=== PATIENT | male | born 1980 | race Caucasian/White ===

== ENCOUNTER 2017-10-07 17:21 | Inpatient (IN) | payer OTHER ==
[~2017-10-07] VITALS: Ht 180.3 cm; Wt 65.1 kg
[2017-10-07] MEDS ORDERED: ACETAMINOPHEN 325 MG TAB PO STA (17:40)
[2017-10-07] MEDS ORDERED: IBUPROFEN 200 MG TAB PO STA (17:40)
[2017-10-07] MEDS ORDERED: SODIUM CHLORIDE 0.9% 1000ML 1,000 ML IV STA (17:40)
[2017-10-07] MEDS ORDERED: OPTIRAY 320 IV PRN (18:00)
--- NOTE | 2017-10-07 18:16 | DIAGNOSTIC IMAGING REPORT ---
CHEST ONE VIEW PORTABLE CLINICAL HISTORY: Sepsis COMPARISON STUDY: No previous studies for comparison. FINDINGS: There is evidence for old distal right clavicular injury. Several old right rib fractures are noted. There is no pneumothorax or pleural effusion. No consolidation. Cardiomediastinal silhouette is unremarkable. IMPRESSION: No acute cardiopulmonary findings. Electronically signed by: Leroy Gracia M.D. 10/07/2017 6:15 PM Dictated Date/Time: 10/07/2017 6:13 PM
[2017-10-07] MEDS ORDERED: CLON0.5T3 PO (18:36)
[2017-10-07] MEDS ORDERED: DIVA500T5 PO (18:38)
[2017-10-07 18:42] LABS: HEMATOCRIT 33.3 % (42-52); HEMOGLOBIN 11.7 g/dL (14.0-18.0); MEAN CELL VOLUME 86.9 fL (80-100); MEAN CORPUSCULAR HEMOGLOBIN 30.5 pg (25-34); MEAN CORPUSCULAR HGB CONC 35.1 g/dl (32-36); MEAN PLATELET VOLUME 9.6 fL (7.4-10.4); PLATELET COUNT 202 K/uL (130-400); RED CELL DISTRIBUTION WIDTH CV 12.7 % (11.5-14.5); RED CELL DISTRIBUTION WIDTH SD 41.1 fL (36.4-46.3); WHITE BLOOD COUNT 6.39 K/uL (4.8-10.8)
[2017-10-07] MEDS ORDERED: INSHRIE SQ ×2 (18:42→18:48)
[2017-10-07] MEDS ORDERED: INSDGI SQ ×2 (18:44→18:56)
[2017-10-07 18:52] LABS: PTT PATIENT 32.3 SECONDS (21.0-31.0)
[2017-10-07] MEDS ORDERED: LISI-789 PO (18:58)
[2017-10-07] MEDS ORDERED: PRVC/40 PO (19:03)
[2017-10-07] MEDS ORDERED: RISP3TAB12 PO (19:05)
[2017-10-07] MEDS ORDERED: ERYOPO OPB (19:08)
[2017-10-07] MEDS ORDERED: ACET-1311 PO (19:11)
[2017-10-07 19:12] LABS: BASO % 0.2 %; BASO ABS # 0.01 K/uL (0-0.2); IG# 0.01 K/uL (0.00-0.02); LYMPH ABS # 0.83 K/uL (1.2-3.4); MONO % 6.6 %; MONO ABS # 0.42 K/uL (0.11-0.59); NEUT ABS # 5.12 K/uL (1.4-6.5)
[2017-10-07] MEDS ORDERED: MOMLX PO (19:15)
[2017-10-07] MEDS ORDERED: EMOLLOT TD (19:16)
[2017-10-07 19:18] LABS: CREATININE 0.85 mg/dl (0.60-1.40); POTASSIUM 3.8 mmol/L (3.5-5.1)
[2017-10-07 19:21] LABS: TOTAL PROTEIN 7.2 gm/dl (6.4-8.2)
[2017-10-07 20:05] LABS: INFLUENZA A PCR Neg for Influ A (NEG); INFLUENZA B PCR Neg for Influ B (NEG)
--- NOTE | 2017-10-07 20:16 | DIAGNOSTIC IMAGING REPORT ---
HEAD COMBO CLINICAL HISTORY: Fever. Headache. COMPARISON STUDY: No previous studies for comparison. TECHNIQUE: Axial images of the head were obtained before and after intravenous administration of 119 cc Optiray 320 IV. FINDINGS: No acute intracranial hemorrhage, midline shift or mass effect is present. Ventricular system is normal. Basilar cisterns are patent. No extra axial collections are present. Boyd-white differentiation is maintained. There are no findings to suggest acute dural sinus thrombosis or acute territorial infarct. There is no intracranial mass or pathologic enhancement. There are no significant calvarial abnormalities. There is minimal mucosal thickening of the sinuses. IMPRESSION: 1. No acute intracranial findings. 2. No intracranial mass or pathologic enhancement. Electronically signed by: Leroy Gracia M.D. 10/07/2017 8:15 PM Dictated Date/Time: 10/07/2017 8:11 PM
[2017-10-07] MEDS ORDERED: PIPERACILLIN/TAZOBACTAM 4.5 GM/100ML D5W IV STA (20:25)
[2017-10-07] MEDS ORDERED: VANCOMYCIN 1GM ED/ASU OMNICELL IV STA (20:25)
--- NOTE | 2017-10-07 20:46 | EMERGENCY ROOM VISIT NOTE ---
History Report prepared by Andres: Mike Alfaro Under the Supervision of: Dr. Andres Loya M.D. First contact with patient: 17:29 Chief Complaint: FEVER Stated Complaint: 105 FEVER History of Present Illness The patient is a 37 year old male who presents to the Emergency Room with complaints of constant fever beginning a few days ago. He is incarcerated. The patient also complains of sore throat, nausea, diarrhea, and headaches. He notes that he has been sleeping a lot recently. His additional symptoms have been present for a few days. The patient's fever peaked at 105 degrees. He has an ulcer of the left great toe which has been present for about a year (on Cipro ). He states that he "killed the ulcer" by putting salt on it a few days ago. The patient states that he is unable to feel his toe which is normal. He notes that he put salt in his eyes recently, which he states was to "help me concentrate". He denies coughing, vomiting, chest pain, or abdominal pain. The headache is frontal. He has had it for 3 days. Source of History: patient Onset: a few days ago Symptom Intensity: 105 degrees Quality: other (fevers) Timing: constant Associated Symptoms: + headache, + sorethroat, + nausea, + diarrhea, No cough, No chest pain, No vomiting, No abdominal pain Review of Systems See HPI for pertinent positives & negatives. A total of 10 systems reviewed and were otherwise negative. Past Medical & Surgical Medical Problems: (1) Diabetes (2) Schizoaffective disorder Family History No pertinent family history stated. Social History Smoking Status: Never Smoker Housing Status: other (incarcerated) Occupation Status: other (incarcerated) Current/Historical Medications Scheduled Clonazepam (Klonopin), 0.5 MG PO BID Divalproex Sodium (Depakote Delay Rel), 500 MG PO BID Erythromycin Opth (Erythromycin Opth), 1 APPLN OPB TID Insulin Glargine (Lantus), 10 UNITS SQ QAM Insulin Glargine (Lantus), 13 UNITS SQ QPM Insulin Human Regular (Humulin R), 3 UNITS SQ QAM Insulin Human Regular (Humulin R), SQ ACHS Lisinopril (Zestril), 2.5 MG PO QAM Pravastatin Sod (Pravastatin Sodium), 40 MG PO HS Risperidone (Risperdal), 3 MG PO BID Scheduled PRN Acetaminophen (Tylenol), 650 MG PO BID PRN for Pain or Fever Emollient (Thera-Derm), 1 APPLN TD DAILY PRN for UNDECIDED Magnesium Hydroxide (Milk of Magnesia), 20 PO DAILY PRN for Constipation Allergies Coded Allergies: No Known Allergies (Unverified , 10/07/17) Physical Exam Vital Signs Date Time Temp Pulse Resp B/P (MAP) Pulse Ox O2 Delivery O2 Flow Rate FiO2 10/07/17 19:58 36.9 10/07/17 19:56 36.9 95 22 106/64 99 Room Air 10/07/17 18:22 95 Room Air 10/07/17 17:26 39.1 119 18 115/68 98 Room Air Physical Exam Constitutional: Vital signs reviewed. Eyes: Pupils are equal round reactive to light. Left eye is injected. HENT: Excoriations to the face over the maxillary sinuses. Whitish discharge on the tongue and throat. Mucous membranes are dry. Neck supple without meningeal signs. Respiratory: Clear to auscultation bilaterally. Breath sounds are equal bilaterally. Cardiovascular: Regular rate and rhythm. No rubs or gallops. GI: Soft, nondistended and nontender. Bowel sounds are present. 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 Left big toe with a large ulcer to the plantar aspect with surrounding cellulitis extending to the forefoot. Integumentary: No cyanosis. Neurological: The patient is awake and alert. No focal deficits. Psychiatric: Flight of ideas. Medical Decision & Procedures ER Provider Diagnostic Interpretation: Radiology results as stated below per my review and the radiologist's interpretation: CHEST ONE VIEW PORTABLE FINDINGS: There is evidence for old distal right clavicular injury. Several old right rib fractures are noted. There is no pneumothorax or pleural effusion. No consolidation. Cardiomediastinal silhouette is unremarkable. IMPRESSION: No acute cardiopulmonary findings. Electronically signed by: Leroy Gracia M.D. 10/07/2017 6:15 PM HEAD COMBO FINDINGS: No acute intracranial hemorrhage, midline shift or mass effect is present. Ventricular system is normal. Basilar cisterns are patent. No extra axial collections are present. Boyd-white differentiation is maintained. There are no findings to suggest acute dural sinus thrombosis or acute territorial infarct. There is no intracranial mass or pathologic enhancement. There are no significant calvarial abnormalities. There is minimal mucosal thickening of the sinuses. IMPRESSION: 1. No acute intracranial findings. 2. No intracranial mass or pathologic enhancement. Electronically signed by: Leroy Gracia M.D. 10/07/2017 8:15 PM Laboratory Results 10/07/17 18:03 Red Blood Count 3.83, Mean Corpuscular Volume 86.9, Mean Corpuscular Hemoglobin 30.5, Mean Corpuscular Hemoglobin Concent 35.1, Mean Platelet Volume 9.6, Neutrophils (%) (Auto) 80.0, Lymphocytes (%) (Auto) 13.0, Monocytes (%) (Auto) 6.6, Eosinophils (%) (Auto) 0.0, Basophils (%) (Auto) 0.2, Neutrophils # (Auto) 5.12, Lymphocytes # (Auto) 0.83, Monocytes # (Auto) 0.42, Eosinophils # (Auto) 0.00, Basophils # (Auto) 0.01 10/07/17 18:03 Test 10/07/17 18:03 10/07/17 18:26 10/07/17 19:15 White Blood Count 6.39 K/uL (4.8-10.8) Red Blood Count 3.83 M/uL (4.7-6.1) Hemoglobin 11.7 g/dL (14.0-18.0) Hematocrit 33.3 % (42-52) Mean Corpuscular Volume 86.9 fL (80-100) Mean Corpuscular Hemoglobin 30.5 pg (25-34) Mean Corpuscular Hemoglobin Concent 35.1 g/dl (32-36) Platelet Count 202 K/uL (130-400) Mean Platelet Volume 9.6 fL (7.4-10.4) Neutrophils (%) (Auto) 80.0 % Lymphocytes (%) (Auto) 13.0 % Monocytes (%) (Auto) 6.6 % Eosinophils (%) (Auto) 0.0 % Basophils (%) (Auto) 0.2 % Neutrophils # (Auto) 5.12 K/uL (1.4-6.5) Lymphocytes # (Auto) 0.83 K/uL (1.2-3.4) Monocytes # (Auto) 0.42 K/uL (0.11-0.59) Eosinophils # (Auto) 0.00 K/uL (0-0.5) Basophils # (Auto) 0.01 K/uL (0-0.2) RDW Standard Deviation 41.1 fL (36.4-46.3) RDW Coefficient of Variation 12.7 % (11.5-14.5) Immature Granulocyte % (Auto) 0.2 % Immature Granulocyte # (Auto) 0.01 K/uL (0.00-0.02) Dohle Bodies 1+ Prothrombin Time 10.7 SECONDS (9.0-12.0) Prothromb Time International Ratio 1.0 (0.9-1.1) Activated Partial Thromboplast Time 32.3 SECONDS (21.0-31.0) Partial Thromboplastin Ratio 1.2 Anion Gap 8.0 mmol/L (3-11) Est Creatinine Clear Calc Drug Dose 117.2 ml/min Estimated GFR () 128.1 Estimated GFR (Non- 110.5 BUN/Creatinine Ratio 19.4 (10-20) Calcium Level 8.0 mg/dl (8.5-10.1) Total Bilirubin 0.5 mg/dl (0.2-1) Aspartate Amino Transf (AST/SGOT) 38 U/L (15-37) Alanine Aminotransferase (ALT/SGPT) 51 U/L (12-78) Alkaline Phosphatase 128 U/L (45-117) Total Protein 7.2 gm/dl (6.4-8.2) Albumin 3.0 gm/dl (3.4-5.0) Globulin 4.2 gm/dl (2.5-4.0) Albumin/Globulin Ratio 0.7 (0.9-2) Influenza Type A (RT-PCR) Neg for Influ A (NEG) Influenza Type B (RT-PCR) Neg for Influ B (NEG) Bedside Lactic Acid Venous 1.87 mmol/L (0.90-1.70) Laboratory results as reviewed by me. Medications Administered Medications (Trade) Dose Ordered Sig/Kunal Route Start Time Stop Time Status Last Admin Dose Admin Ibuprofen (Advil Tab) 400 mg NOW STAT PO 10/07/17 17:40 10/07/17 17:44 DC 10/07/17 17:40 400 MG Acetaminophen (Tylenol Tab) 650 mg NOW STAT PO 10/07/17 17:40 10/07/17 17:44 DC 4/2/18 17:40 650 MG Sodium Chloride 1,000 ml @ 999 mls/hr Q1H1M STAT IV 10/07/17 17:40 10/07/17 18:40 DC 10/07/17 17:40 999 MLS/HR Piperacillin Sod/ Tazobactam Sod (Zosyn Iv) 4.5 gm NOW STAT IV 10/07/17 20:25 10/07/17 20:26 DC 10/07/17 20:38 4.5 GM ED Course 1729: The patient was evaluated in room B6. A complete history and physical exam was performed. 1739: Ordered Tylenol Tab 650 mg PO, Advil Tab 400 mg PO. 1934: I spoke with the patient. His headache has improved. 2007: Upon reevaluation, the patient is resting comfortably. I discussed tonight 's findings with him. He verbalized agreement of the treatment plan. The patient will be evaluated for further management. Medical Decision This is a 37-year-old male presents with fever, headache and foot infection. Differential diagnosis includes sepsis, osteomyelitis, gangrene, cellulitis, influenza, intracranial hemorrhage, brain abscess. I did perform a limited focused review of portions of the patient's old chart on the electronic medical record. The patient has had no prior visits to this hospital. I did evaluate the patient as noted above. The patient is presenting with fever starting today. He states he has had a headache for about 3 days. He is neurologically intact without any focal deficits. He has no meningeal signs and is able to move his neck around without any difficulty. He is febrile here and I did treat him with Tylenol and Motrin. He does have a significant infection to his left foot which he has been putting salt on. IV access was established. I did order and personally review the patient's 12-lead EKG and chest x-ray as described above. I did order and review the patient's blood work as noted in the electronic medical record. His white blood cell count is not elevated. His lactic acid is slightly elevated. He has slight hyponatremia. He does have hyperglycemia as well. He is a diabetic. The patient was complaining of a frontal headache for the past 3 days. I did order a CT of the head with and without contrast. I did review the images myself as well as the radiology report as described above. There is no evidence of brain abscess or intracranial hemorrhage. On reassessment the patient states that his headache is much better. He rates it a 4 out of 10 in severity. He has no meningeal signs. I did treat the patient empirically with vancomycin and Zosyn for his left foot infection. An x-ray was obtained which shows no acute fracture. No periosteal irregularity was noted per my interpretation. I did discuss the test results with the patient. I did discuss case with the hospitalist and counter caser. Medication Reconcilliation Current Medication List: was personally reviewed by me Blood Pressure Screening Patient's blood pressure: Normal blood pressure Blood pressure disposition: Did not require urgent referral Consults Time Called: 1957 Consulting Physician: Dr. Maxwell - [facility] [place] Hospitalist Returned Call: 2009 Dr. Maxwell was made aware of the patient's case. The patient will be evaluated for further management. Impression Primary Impression: Left foot infection Additional Impressions: Hyperglycemia Hyponatremia Headache Scribe Attestation The scribe's documentation has been prepared under my direct and personally reviewed by me in its entirety. I confirm that the note above accurately reflects all work, treatment, procedures, and medical decision making performed by me. Departure Information Dispostion Being Evaluated By Hospitalist Referrals No Doctor, Assigned (PCP) Patient Instructions My [facility] Problem Qualifiers Additional Impressions: Headache Headache type: unspecified Headache chronicity pattern: acute headache Intractability: not intractable Qualified Codes: R51 - Headache
--- NOTE | 2017-10-07 20:56 | DIAGNOSTIC IMAGING REPORT ---
L FOOT MIN 3 VIEWS ROUTINE CLINICAL HISTORY: Evaluate for fracture or osteomyelitis. COMPARISON: None FINDINGS: Tarsometatarsal joints are intact. There is no fracture. There is no radiographic evidence of osteomyelitis within the left foot. There is possible soft tissue swelling of the left first toe. IMPRESSION: No fracture or radiographic evidence of osteomyelitis within the left foot. Electronically signed by: Leroy Gracia M.D. 10/07/2017 8:55 PM Dictated Date/Time: 10/07/2017 8:53 PM
[2017-10-07] MEDS ORDERED: PIPERACILL/TAZOBAC CONSULT ACTIVE PRN (21:30)
[2017-10-07] MEDS ORDERED: GLUCOSE 40% GEL 15 GM TUBE PO PRN (21:30)
[2017-10-07] MEDS ORDERED: MAGNESIUM HYDROXIDE SUSP 30 ML UDC PO PRN (21:30)
[2017-10-07] MEDS ORDERED: ALUMINUM/MAGNESIUM/SIMETH (MAALOX MAX) 30 ML UDC PO PRN (21:30)
[2017-10-07] MEDS ORDERED: GLUCOSE 10 TABS/TUBE PO PRN (21:30)
[2017-10-07] MEDS ORDERED: ONDANSETRON 8MG OD TAB PO PRN (21:30)
[2017-10-07] MEDS ORDERED: POLYETHYLENE (MIRALAX) 17 GM PACK PO PRN (21:30)
[2017-10-07] MEDS ORDERED: GLUCAGON FOR INJ 1 MG VIAL SQ PRN (21:30)
[2017-10-07] MEDS ORDERED: DEXTROSE 50% 50 ML SYR IV PRN (21:30)
[2017-10-07] MEDS ORDERED: VANCOMYCIN CONSULT ACTIVE PRN (21:30)
--- NOTE | 2017-10-07 21:30 | History and Physical ---
History & Physical Date & Time of Service: Oct 07, 2017 at 21:30 Chief Complaint: 105 Fever Primary Care Physician: Alden PA History of Present Illness Source: patient, hospital records The patient is a 37-year-old male inmate who presents to the emergency department with report of a blister on his left great toe which had been present for about a year, originally treated with Cipro, and then he put salt on it a few days ago when it recurred, and now presents with fevers and chills. He also notes that he put salt in his eyes, to help him concentrate. He does have a mild frontal headache, over the past 3 days. Past Medical/Surgical History Medical Problems: (1) Diabetes (2) Schizoaffective disorder Family History Noncontributory Social History Smoking Status: Never Smoker Smokeless Tobacco Use: No Alcohol Use: none Drug Use: none Housing status: other (Shelter) Occupational Status: other (incarcerated) Immunizations History of Influenza Vaccine: Unknown History of Tetanus Vaccine?: Unknown History of Pneumococcal: Unknown History of Hepatitis B Vaccine: Unknown Allergies Coded Allergies: No Known Allergies (Unverified , 10/07/17) Home Medications Scheduled Clonazepam (Klonopin), 0.5 MG PO BID Divalproex Sodium (Depakote Delay Rel), 500 MG PO BID Erythromycin Opth (Erythromycin Opth), 1 APPLN OPB TID Insulin Glargine (Lantus), 10 UNITS SQ QAM Insulin Glargine (Lantus), 13 UNITS SQ QPM Insulin Human Regular (Humulin R), 3 UNITS SQ QAM Insulin Human Regular (Humulin R), SQ ACHS Lisinopril (Zestril), 2.5 MG PO QAM Pravastatin Sod (Pravastatin Sodium), 40 MG PO HS Risperidone (Risperdal), 3 MG PO BID Scheduled PRN Acetaminophen (Tylenol), 650 MG PO BID PRN for Pain or Fever Emollient (Thera-Derm), 1 APPLN TD DAILY PRN for UNDECIDED Magnesium Hydroxide (Milk of Magnesia), 20 PO DAILY PRN for Constipation Review of Systems The patient denies chest pain, palpitations, shortness of breath, dyspnea on exertion, cough, lower extremity swelling, sore throat, fatigue, nausea, vomiting, diarrhea , constipation, abdominal pain , pelvic pain, blood in urine or stool, dysuria, urinary frequency or urgency, lightheadedness , dizziness, headache, memory loss, loss of consciousness, abnormal bruising or bleeding, generalized weakness, generalized arthralgias or myalgias, back or neck pain, or night sweats. The review of systems is otherwise negative other than for that already noted above, and at least 10 systems have been reviewed. Physical Exam Vital Signs Date Time Temp Pulse Resp B/P (MAP) Pulse Ox O2 Delivery O2 Flow Rate FiO2 10/07/17 19:58 36.9 10/07/17 19:56 36.9 95 22 106/64 99 Room Air 10/07/17 18:22 95 Room Air 10/07/17 17:26 39.1 119 18 115/68 98 Room Air The patient is awake, alert and oriented 3, appears disheveled, normocephalic and atraumatic, lying in bed and in no acute distress. HEENT--PERRL, EOMI, mucous membranes and oropharynx dry. Neck--supple. No JVD. No bruits. Thyroid normal, trachea midline, no adenopathy. Heart--normal S1 and S2. No murmurs, rubs or gallops. Lungs--clear bilaterally, no respiratory distress, no accessory muscle use. Abdomen--normal bowel sounds and soft. Nontender. Nondistended, no hernias or masses, no organomegaly. Extremities-- No edema. There are good distal pulses b/l. Dermatologic--left great toe with erythema and warmth, with area of eschar approximately 1/2 cm in diameter at the base of the left great toe. Neurologic--cranial nerves II through XII grossly intact. Rheumatologic--normal range of motion. Psychiatric--normal affect. Diagnostics Laboratory Results Results Past 24 Hours Test 10/07/17 18:03 10/07/17 18:26 10/07/17 19:15 10/07/17 21:16 Range/Units White Blood Count 6.39 4.8-10.8 K/uL Red Blood Count 3.83 4.7-6.1 M/uL Hemoglobin 11.7 14.0-18.0 g/dL Hematocrit 33.3 42-52 % Mean Corpuscular Volume 86.9 80-100 fL Mean Corpuscular Hemoglobin 30.5 25-34 pg Mean Corpuscular Hemoglobin Concent 35.1 32-36 g/dl Platelet Count 202 130-400 K/uL Mean Platelet Volume 9.6 7.4-10.4 fL Neutrophils (%) (Auto) 80.0 % Lymphocytes (%) (Auto) 13.0 % Monocytes (%) (Auto) 6.6 % Eosinophils (%) (Auto) 0.0 % Basophils (%) (Auto) 0.2 % Neutrophils # (Auto) 5.12 1.4-6.5 K/uL Lymphocytes # (Auto) 0.83 1.2-3.4 K/uL Monocytes # (Auto) 0.42 0.11-0.59 K/uL Eosinophils # (Auto) 0.00 0-0.5 K/uL Basophils # (Auto) 0.01 0-0.2 K/uL RDW Standard Deviation 41.1 36.4-46.3 fL RDW Coefficient of Variation 12.7 11.5-14.5 % Immature Granulocyte % (Auto) 0.2 % Immature Granulocyte # (Auto) 0.01 0.00-0.02 K/uL Dohle Bodies 1+ Prothrombin Time 10.7 9.0-12.0 SECONDS Prothromb Time International Ratio 1.0 0.9-1.1 Activated Partial Thromboplast Time 32.3 21.0-31.0 SECONDS Partial Thromboplastin Ratio 1.2 Sodium Level 130 136-145 mmol/L Potassium Level 3.8 3.5-5.1 mmol/L Chloride Level 92 98-107 mmol/L Carbon Dioxide Level 30 21-32 mmol/L Anion Gap 8.0 3-11 mmol/L Blood Urea Nitrogen 16 7-18 mg/dl Creatinine 0.85 0.60-1.40 mg/dl Est Creatinine Clear Calc Drug Dose 117.2 ml/min Estimated GFR () 128.1 Estimated GFR (Non- 110.5 BUN/Creatinine Ratio 19.4 10-20 Random Glucose 225 70-99 mg/dl Calcium Level 8.0 8.5-10.1 mg/dl Total Bilirubin 0.5 0.2-1 mg/dl Aspartate Amino Transf (AST/SGOT) 38 15-37 U/L Alanine Aminotransferase (ALT/SGPT) 51 12-78 U/L Alkaline Phosphatase 128 45-117 U/L Total Protein 7.2 6.4-8.2 gm/dl Albumin 3.0 3.4-5.0 gm/dl Globulin 4.2 2.5-4.0 gm/dl Albumin/Globulin Ratio 0.7 0.9-2 Influenza Type A (RT-PCR) Neg for Influ A NEG Influenza Type B (RT-PCR) Neg for Influ B NEG Bedside Lactic Acid Venous 1.87 0.90-1.70 mmol/L Microbiology Results 10/07/17 Blood Culture, Received Pending 10/07/17 Blood Culture, Received Pending 10/07/17 Fungal Smear, Received Pending 10/07/17 Fungal Culture, Received Pending Diagnostic Radiology Patient Name: GEOFF VILLATORO [id number] Unit Number: [id number] Dictated: 10/07/172010 Transcribed: 10/07/172010 JA Printed Date/Time: [~ rep prt dt]/[~ rep prt tm] [~ rep ct labl] - [~ rep ct ivnm] [facility] Radiology Department [place] [id number] Dictated: 10/07/172010 Transcribed: 10/07/172010 JA Printed Date/Time: [~ rep prt dt]/[~ rep prt tm] [~ rep ct labl] - [~ rep ct ivnm] HEAD COMBO CLINICAL HISTORY: Fever. Headache. COMPARISON STUDY: No previous studies for comparison. TECHNIQUE: Axial images of the head were obtained before and after intravenous administration of 119 cc Optiray 320 IV. FINDINGS: No acute intracranial hemorrhage, midline shift or mass effect is present. Ventricular system is normal. Basilar cisterns are patent. No extra axial collections are present. Boyd-white differentiation is maintained. There are no findings to suggest acute dural sinus thrombosis or acute territorial infarct. There is no intracranial mass or pathologic enhancement. There are no significant calvarial abnormalities. There is minimal mucosal thickening of the sinuses. IMPRESSION: 1. No acute intracranial findings. 2. No intracranial mass or pathologic enhancement. Electronically signed by: Leroy Gracia M.D. 10/07/2017 8:15 PM Dictated Date/Time: 10/07/2017 8:11 PM The status of this report is Signed. Draft = Not yet reviewed or approved by Radiologist. Signed = Reviewed and approved by Radiologist. <AttendingPhy></AttendingPhy> <FamilyPhy>Alden PA</FamilyPhy> <PrimaryPhy>Alden PA</PrimaryPhy> <UnitNumber>[id number]</UnitNumber> <VisitNumber> [id number]</VisitNumber> <PatientName>GEOFF VILLATORO [id number]</PatientName> < DateOfBirth>1980</DateOfBirth> <Location>[facility]</Location> <ServiceDate>08/25</ServiceDate> <MNE>ESINDI</MNE> <OrderingPhy>Andres Loya MD</ OrderingPhy> <OrderingPhyMNE>f rep ord dr nava</OrderingPhyMNE> <DictatingPhyMNE> f rep dict dr nava</DictatingPhyMNE> <CCListMNE>f rep ct mne</CCListMNE> < AdmittingPhyMNE>f pt admit dr nava</AdmittingPhyMNE> <AttendingPhyMNE>f pt attend dr nava</AttendingPhyMNE> <ConsultingPhyMNE>f pt consult dr nava</ConsultingPhyMNE> <FamilyPhyMNE>f pt fam dr nava</FamilyPhyMNE> <OtherPhyMNE>f pt other dr nava</OtherPhyMNE> < PrimaryPhyMNE>f pt prim care dr nava</PrimaryPhyMNE> <ReferringPhyMNE>f pt referring dr nava</ReferringPhyMNE> Patient Name: GEOFF VILLATORO [id number] Unit Number: [id number] Dictated: 10/07/171812 Transcribed: 10/07/171812 JA Printed Date/Time: [~ rep prt dt]/[~ rep prt tm] [~ rep ct labl] - [~ rep ct ivnm] [facility] [place] [address] Dictated: 10/07/171812 Transcribed: 10/07/171812 JA Printed Date/Time: [~ rep prt dt]/[~ rep prt tm] [~ rep ct labl] - [~ rep ct ivnm] [~ rep ct add3]] CHEST ONE VIEW PORTABLE CLINICAL HISTORY: Sepsis COMPARISON STUDY: No previous studies for comparison. FINDINGS: There is evidence for old distal right clavicular injury. Several old right rib fractures are noted. There is no pneumothorax or pleural effusion. No consolidation. Cardiomediastinal silhouette is unremarkable. IMPRESSION: No acute cardiopulmonary findings. Electronically signed by: Leroy Gracia M.D. 10/07/2017 6:15 PM Dictated Date/Time: 10/07/2017 6:13 PM The status of this report is Signed. Draft = Not yet reviewed or approved by Radiologist. Signed = Reviewed and approved by Radiologist. <AttendingPhy></AttendingPhy> <FamilyPhy>Alden PA</FamilyPhy> <PrimaryPhy>THIERNOAlden</PrimaryPhy> <UnitNumber>[id number]</UnitNumber> <VisitNumber> [id number]</VisitNumber> <PatientName>GEOFF VILLATORO [id number]</PatientName> < DateOfBirth>1980</DateOfBirth> <Location>C.EDB</Location> <ServiceDate>08/25</ServiceDate> <MNE>ESINDI</MNE> <OrderingPhy>Andres Loya MD</ OrderingPhy> <OrderingPhyMNE>f rep ord dr nava</OrderingPhyMNE> <DictatingPhyMNE> f rep dict dr nava</DictatingPhyMNE> <CCListMNE>f rep ct mne</CCListMNE> < AdmittingPhyMNE>f pt admit dr nava</AdmittingPhyMNE> <AttendingPhyMNE>f pt attend dr nava</AttendingPhyMNE> <ConsultingPhyMNE>f pt consult dr nava</ConsultingPhyMNE> <FamilyPhyMNE>f pt fam dr nava</FamilyPhyMNE> <OtherPhyMNE>f pt other dr nava</OtherPhyMNE> < PrimaryPhyMNE>f pt prim care dr nava</PrimaryPhyMNE> <ReferringPhyMNE>f pt referring dr nava</ReferringPhyMNE> Patient Name: VILLATOROGEOFF [id number] Unit Number: [id number] Dictated: 10/07/172052 Transcribed: 10/07/172052 JA Printed Date/Time: [~ rep prt dt]/[~ rep prt tm] [~ rep ct labl] - [~ rep ct ivnm] [facility] [place] [address] Dictated: 10/07/172052 Transcribed: 10/07/172052 JA Printed Date/Time: [~ rep prt dt]/[~ rep prt tm] [~ rep ct labl] - [~ rep ct ivnm] [~ rep ct add3]] L FOOT MIN 3 VIEWS ROUTINE CLINICAL HISTORY: Evaluate for fracture or osteomyelitis. COMPARISON: None FINDINGS: Tarsometatarsal joints are intact. There is no fracture. There is no radiographic evidence of osteomyelitis within the left foot. There is possible soft tissue swelling of the left first toe. IMPRESSION: No fracture or radiographic evidence of osteomyelitis within the left foot. Electronically signed by: Leroy Gracia M.D. 10/07/2017 8:55 PM Dictated Date/Time: 10/07/2017 8:53 PM The status of this report is Signed. Draft = Not yet reviewed or approved by Radiologist. Signed = Reviewed and approved by Radiologist. <AttendingPhy></AttendingPhy> <FamilyPhy>Alden PA</FamilyPhy> <PrimaryPhy>Alden PA</PrimaryPhy> <UnitNumber>[id number]</UnitNumber> <VisitNumber> [id number]</VisitNumber> <PatientName>GEOFF VILLATORO [id number]</PatientName> < DateOfBirth>1980</DateOfBirth> <Location>[facility]</Location> <ServiceDate>08/25</ServiceDate> <MNE>ESINDI</MNE> <OrderingPhy>Andres Loya MD</ OrderingPhy> <OrderingPhyMNE>f rep ord dr nava</OrderingPhyMNE> <DictatingPhyMNE> f rep dict dr nava</DictatingPhyMNE> <CCListMNE>f rep ct mne</CCListMNE> < AdmittingPhyMNE>f pt admit dr nava</AdmittingPhyMNE> <AttendingPhyMNE>f pt attend dr nava</AttendingPhyMNE> <ConsultingPhyMNE>f pt consult dr nava</ConsultingPhyMNE> <FamilyPhyMNE>f pt fam dr nava</FamilyPhyMNE> <OtherPhyMNE>f pt other dr nava</OtherPhyMNE> < PrimaryPhyMNE>f pt prim care dr nava</PrimaryPhyMNE> <ReferringPhyMNE>f pt referring dr nava</ReferringPhyMNE> Impression Assessment and Plan Diabetic left foot ulcer-- admit to the medical floor Placed on vancomycin IV and Zosyn IV. X-ray does not suggest osteomyelitis, but if there are questions, could order a bone scan or MRI. Diabetes mellitus-- Continue Lantus insulin 10 units subcu every morning and 13 units subcu every evening. Hold regular insulin. Placed on Accu-Cheks before meals and at bedtime with NovoLog coverage per scale. Schizoaffective disorder-- Continue risperidone 3 mg p.o. twice daily, Depakote delayed release 500 mg p.o. twice daily and clonazepam 0.5 mg p.o. twice daily. Hyperlipidemia-- Continue pravastatin 40 mg p.o. at bedtime and lisinopril 2.5 mg p.o. daily. Advanced Directives Existing Advance Directive: No Existing Living Will: No Existing Power of Video System Repairer: No Resuscitation Status VTE Prophylaxis Will order VTE Prophylaxis: Yes
[2017-10-07] MEDS ORDERED: VANCOMYCIN IV 750 MG in SODIUM CHLORIDE 0.9% 250ML 250 ML IV SCH (23:00)
[2017-10-07 23:05] VITALS: BP 133/83; TEMP 36.7; O2SAT 93
[2017-10-07 23:06] VITALS: BP 90/51; TEMP 36.6; O2SAT 99
[2017-10-07 23:11] VITALS: BMI 20.0
[2017-10-07] MEDS ORDERED: IV FLUIDS COMPLETED PRN (23:45)
[2017-10-08] MEDS: PIPERACILL/TAZOBAC IV 3.375 GM in DEXTROSE 5% 100ML 100 ML IV SCH ×3 (02:13→20:02)
[2017-10-08] MEDS ORDERED: INSULIN ASPART 100 UNITS/ML 3 ML PEN SC SCH (06:30)
[2017-10-08 07:02] LABS: BASO % 0.2 %; BASO ABS # 0.01 K/uL (0-0.2); EOS % 0.6 %; EOS ABS # 0.04 K/uL (0-0.5); HEMATOCRIT 31.7 % (42-52); HEMOGLOBIN 11.1 g/dL (14.0-18.0); IG# 0.01 K/uL (0.00-0.02); LYMPH % 19.7 %; LYMPH ABS # 1.29 K/uL (1.2-3.4); MEAN CELL VOLUME 87.1 fL (80-100); MEAN CORPUSCULAR HEMOGLOBIN 30.5 pg (25-34); MEAN PLATELET VOLUME 9.5 fL (7.4-10.4); MONO % 8.6 %; MONO ABS # 0.56 K/uL (0.11-0.59); NEUT % 70.7 %; NEUT ABS # 4.63 K/uL (1.4-6.5); PLATELET COUNT 181 K/uL (130-400); RED CELL DISTRIBUTION WIDTH CV 12.8 % (11.5-14.5); RED CELL DISTRIBUTION WIDTH SD 41.2 fL (36.4-46.3); WHITE BLOOD COUNT 6.54 K/uL (4.8-10.8)
[2017-10-08 07:12] VITALS: BP 110/73; PULSE 80; TEMP 36.8; O2SAT 99
[2017-10-08 07:12] LABS: HEMOGLOBIN A1C 10.7 % (4.5-5.6)
[2017-10-08 07:35] LABS: CALCIUM 7.8 mg/dl (8.5-10.1); CREATININE 0.62 mg/dl (0.60-1.40); POTASSIUM 4.1 mmol/L (3.5-5.1)
[2017-10-08] MEDS ORDERED: PHARMACY GLYCEMIC MGMT CONSULT PRN (07:55)
[2017-10-08] MEDS ORDERED: INSULIN GLARGINE SOLOSTAR 100 UNITS/ML 3 ML PEN SQ SCH ×2 (08:00→21:00)
[2017-10-08] MEDS ORDERED: INSULIN GLARGINE SOLOSTAR 100 UNITS/ML 3 ML PEN SC STA (08:32)
[2017-10-08] MEDS: DIVALPROEX SODIUM 500 MG DELAY RELEASE TAB PO SCH ×2 (08:49→20:03)
[2017-10-08] MEDS: CLONAZEPAM 0.5 MG TAB PO SCH ×2 (08:49→20:02)
[2017-10-08] MEDS: RISPERIDONE 3 MG TAB PO SCH ×2 (08:49→20:03)
[2017-10-08] MEDS: LISINOPRIL 2.5 MG TAB PO SCH (08:49)
[2017-10-08] MEDS: ENOXAPARIN 40 MG/0.4 ML SYR SQ SCH (08:50)
[2017-10-08] MEDS: INSULIN ASPART 100 UNITS/ML 3 ML PEN SC SCH ×4 (08:54→20:14)
--- NOTE | 2017-10-08 08:56 | Family Medicine Progress Note ---
Progress Note Date of Service Oct 08, 2017. Subjective Pt evaluation today including: conversation w/ patient, physical exam, chart review, lab review, review of studies, review of inpatient medication list Pain: denies PO Intake: adequate Voiding: no voiding problems no acute events. Patient denies foot pain, fevers chills, n/v, abdominal pain, diarrhea, Constitutional: No fever, No chills Respiratory: No cough Cardiovascular: No chest pain, No edema, No palpitations Abdomen: No pain, No nausea, No vomiting Male : No dysuria, No urinary frequency Neurologic: + numbness/tingling (Left Great toe) Medications Current Inpatient Medications Medications (Trade) Dose Ordered Sig/Kunal Route Start Time Stop Time Status Last Admin Dose Admin Ioversol (Optiray 320) 100 ml UD PRN IV 10/07/17 18:00 10/11/17 17:59 Enoxaparin Sodium (Lovenox Inj) 40 mg Q24H SQ 10/08/17 08:00 11/07/17 07:59 10/08/17 08:50 40 MG Acetaminophen (Tylenol Tab) 650 mg Q4H PRN PO 10/07/17 21:30 11/06/17 21:29 Al Hydrox/Mg Hydrox/Simethicone (Maalox Max Susp) 15 ml Q4H PRN PO 10/07/17 21:30 11/06/17 21:29 Magnesium Hydroxide (Milk Of Magnesia Susp) 30 ml Q6H PRN PO 10/07/17 21:30 11/06/17 21:29 Polyethylene (Miralax Powder Packet) 17 gm DAILY PRN PO 10/07/17 21:30 11/06/17 21:29 Ondansetron HCl (Zofran Odt) 8 mg Q6H PRN PO 10/07/17 21:30 11/06/17 21:29 Glucose (Glucose 40% Gel) 15-30 GRAMS 15 GRAMS... UD PRN PO 10/07/17 21:30 11/06/17 21:29 Glucose (Glucose Chew Tab) 4-8 Tablets 4 Tabl... UD PRN PO 10/07/17 21:30 11/06/17 21:29 Dextrose (Dextrose 50% 50ML Syringe) 25-50ML OF 50% DW IV FOR... UD PRN IV 10/07/17 21:30 11/06/17 21:29 Glucagon (Glucagon Inj) 1 mg UD PRN SQ 10/07/17 21:30 11/06/17 21:29 Piperacillin Sod/ Tazobactam Sod 3.375 gm/Dextrose 115 ml @ 28 mls/hr Q8H IV 10/08/17 02:00 10/18/17 01:59 10/08/17 02:13 28 MLS/HR Clonazepam (Klonopin Tab) 0.5 mg BID PO 10/08/17 08:00 11/07/17 08:59 10/08/17 08:49 0.5 MG Divalproex Sodium (Depakote Delay Rel Tab) 500 mg BID PO 10/08/17 08:00 11/07/17 08:59 10/08/17 08:49 500 MG Lisinopril (Zestril Tab) 2.5 mg QAM PO 10/08/17 08:00 11/07/17 08:59 10/08/17 08:49 2.5 MG Pravastatin Sodium (Pravachol Tab) 40 mg HS PO 10/08/17 21:00 11/07/17 20:59 Risperidone (Risperdal Tab) 3 mg BID PO 10/08/17 08:00 11/07/17 08:59 10/08/17 08:49 3 MG Miscellaneous Information (Order Awaiting Action) 1 ea QS N/A 10/08/17 00:00 11/07/17 00:00 Miscellaneous Information (Consult) 1 ea UD PRN N/A 10/07/17 21:30 11/06/17 21:29 Miscellaneous Information (Consult) 1 ea UD PRN N/A 10/07/17 21:30 11/06/17 21:29 Miscellaneous (Iv Fluids Completed) 1 ea PRN PRN N/A 10/07/17 23:45 10/07/18 23:44 Vancomycin HCl 1000 mg/Sodium Chloride 270 ml @ 125 mls/hr Q10H IV 10/08/17 10:00 10/18/17 09:59 Miscellaneous Information (Consult Glycemic Management Pharmacy) 1 ea UD PRN N/A 10/08/17 07:55 11/07/17 07:54 Insulin Glargine (Lantus Solostar Pen) 13 units HS CO 10/08/17 22:00 11/07/17 21:59 Insulin Aspart (novoLOG ASPART) SLIDING SCALE If C... ACHS CO 10/08/17 08:40 11/07/17 08:39 10/08/17 08:54 14 UNITS Objective Vital Signs Date Time Temp Pulse Resp B/P (MAP) Pulse Ox O2 Delivery O2 Flow Rate FiO2 10/08/17 07:12 36.8 80 20 110/73 (85) 99 Room Air 10/08/17 00:00 Room Air 10/07/17 23:11 Room Air 10/07/17 23:06 36.6 18 90/51 (64) 99 Room Air 10/07/17 22:30 36.9 95 22 106/64 99 10/07/17 19:58 36.9 10/07/17 19:56 36.9 95 22 106/64 99 Room Air 10/07/17 18:22 95 Room Air 10/07/17 17:26 39.1 119 18 115/68 98 Room Air Physical Exam General Appearance: WD/WN, no apparent distress Eyes: normal inspection, PERRL, sclerae normal Neck: supple, no adenopathy, trachea midline Respiratory/Chest: lungs clear, normal breath sounds, no respiratory distress, no accessory muscle use Cardiovascular: regular rate, rhythm, no edema, no murmur Abdomen: normal bowel sounds, non tender, soft Extremities: + pertinent finding (Left great toe black eschar on plantar surface with oozing puss, nontender, FROM , no sensation palpatiion) Neurologic/Psychiatric: alert, oriented x 3 Laboratory Results Results Past 24 Hours Test 10/07/17 18:03 10/07/17 18:26 10/07/17 19:15 10/07/17 21:16 Range/Units White Blood Count 6.39 4.8-10.8 K/uL Red Blood Count 3.83 4.7-6.1 M/uL Hemoglobin 11.7 14.0-18.0 g/dL Hematocrit 33.3 42-52 % Mean Corpuscular Volume 86.9 80-100 fL Mean Corpuscular Hemoglobin 30.5 25-34 pg Mean Corpuscular Hemoglobin Concent 35.1 32-36 g/dl Platelet Count 202 130-400 K/uL Mean Platelet Volume 9.6 7.4-10.4 fL Neutrophils (%) (Auto) 80.0 % Lymphocytes (%) (Auto) 13.0 % Monocytes (%) (Auto) 6.6 % Eosinophils (%) (Auto) 0.0 % Basophils (%) (Auto) 0.2 % Neutrophils # (Auto) 5.12 1.4-6.5 K/uL Lymphocytes # (Auto) 0.83 1.2-3.4 K/uL Monocytes # (Auto) 0.42 0.11-0.59 K/uL Eosinophils # (Auto) 0.00 0-0.5 K/uL Basophils # (Auto) 0.01 0-0.2 K/uL RDW Standard Deviation 41.1 36.4-46.3 fL RDW Coefficient of Variation 12.7 11.5-14.5 % Immature Granulocyte % (Auto) 0.2 % Immature Granulocyte # (Auto) 0.01 0.00-0.02 K/uL Dohle Bodies 1+ Prothrombin Time 10.7 9.0-12.0 SECONDS Prothromb Time International Ratio 1.0 0.9-1.1 Activated Partial Thromboplast Time 32.3 21.0-31.0 SECONDS Partial Thromboplastin Ratio 1.2 Sodium Level 130 136-145 mmol/L Potassium Level 3.8 3.5-5.1 mmol/L Chloride Level 92 98-107 mmol/L Carbon Dioxide Level 30 21-32 mmol/L Anion Gap 8.0 3-11 mmol/L Blood Urea Nitrogen 16 7-18 mg/dl Creatinine 0.85 0.60-1.40 mg/dl Est Creatinine Clear Calc Drug Dose 117.2 ml/min Estimated GFR () 128.1 Estimated GFR (Non- 110.5 BUN/Creatinine Ratio 19.4 10-20 Random Glucose 225 70-99 mg/dl Estimated Average Glucose 260 mg/dl Hemoglobin A1c 10.7 4.5-5.6 % Calcium Level 8.0 8.5-10.1 mg/dl Total Bilirubin 0.5 0.2-1 mg/dl Aspartate Amino Transf (AST/SGOT) 38 15-37 U/L Alanine Aminotransferase (ALT/SGPT) 51 12-78 U/L Alkaline Phosphatase 128 45-117 U/L Total Protein 7.2 6.4-8.2 gm/dl Albumin 3.0 3.4-5.0 gm/dl Globulin 4.2 2.5-4.0 gm/dl Albumin/Globulin Ratio 0.7 0.9-2 Influenza Type A (RT-PCR) Neg for Influ A NEG Influenza Type B (RT-PCR) Neg for Influ B NEG Bedside Lactic Acid Venous 1.87 0.90-1.70 mmol/L Urine Color YELLOW Urine Appearance CLEAR CLEAR Urine pH 7.5 4.5-7.5 Urine Specific [place] 1.022 1.000-1.030 Urine Protein NEG NEG Urine Glucose (UA) TRACE NEG Urine Ketones NEG NEG Urine Occult Blood NEG NEG Urine Nitrite NEG NEG Urine Bilirubin NEG NEG Urine Urobilinogen NEG NEG Urine Leukocyte Esterase NEG NEG Urine WBC (Auto) 0 0-5 /hpf Urine RBC (Auto) 0-4 0-4 /hpf Urine Hyaline Casts (Auto) 0 0-5 /lpf Urine Epithelial Cells (Auto) 5-10 0-5 /lpf Urine Bacteria (Auto) NEG NEG Test 10/08/17 01:17 10/08/17 06:28 Range/Units Bedside Glucose 177 70-99 mg/dl White Blood Count 6.54 4.8-10.8 K/uL Red Blood Count 3.64 4.7-6.1 M/uL Hemoglobin 11.1 14.0-18.0 g/dL Hematocrit 31.7 42-52 % Mean Corpuscular Volume 87.1 80-100 fL Mean Corpuscular Hemoglobin 30.5 25-34 pg Mean Corpuscular Hemoglobin Concent 35.0 32-36 g/dl Platelet Count 181 130-400 K/uL Mean Platelet Volume 9.5 7.4-10.4 fL Neutrophils (%) (Auto) 70.7 % Lymphocytes (%) (Auto) 19.7 % Monocytes (%) (Auto) 8.6 % Eosinophils (%) (Auto) 0.6 % Basophils (%) (Auto) 0.2 % Neutrophils # (Auto) 4.63 1.4-6.5 K/uL Lymphocytes # (Auto) 1.29 1.2-3.4 K/uL Monocytes # (Auto) 0.56 0.11-0.59 K/uL Eosinophils # (Auto) 0.04 0-0.5 K/uL Basophils # (Auto) 0.01 0-0.2 K/uL RDW Standard Deviation 41.2 36.4-46.3 fL RDW Coefficient of Variation 12.8 11.5-14.5 % Immature Granulocyte % (Auto) 0.2 % Immature Granulocyte # (Auto) 0.01 0.00-0.02 K/uL Prothrombin Time 10.4 9.0-12.0 SECONDS Prothromb Time International Ratio 1.0 0.9-1.1 Activated Partial Thromboplast Time 32.0 21.0-31.0 SECONDS Partial Thromboplastin Ratio 1.2 Sodium Level 134 136-145 mmol/L Potassium Level 4.1 3.5-5.1 mmol/L Chloride Level 100 98-107 mmol/L Carbon Dioxide Level 29 21-32 mmol/L Anion Gap 5.0 3-11 mmol/L Blood Urea Nitrogen 14 7-18 mg/dl Creatinine 0.62 0.60-1.40 mg/dl Est Creatinine Clear Calc Drug Dose 148.8 ml/min Estimated GFR () 145.9 Estimated GFR (Non- 125.8 BUN/Creatinine Ratio 21.8 10-20 Random Glucose 258 70-99 mg/dl Calcium Level 7.8 8.5-10.1 mg/dl Magnesium Level 2.3 1.8-2.4 mg/dl Triglycerides Level 91 0-150 mg/dl Cholesterol Level 95 0-200 mg/dl HDL Cholesterol 38 mg/dl LDL Cholesterol, Calculated 39 mg/dl VLDL Cholesterol, Calculated 18 mg/dl Cholesterol/HDL Ratio 2.5 Microbiology Results 10/07/17 Blood Culture, Received Pending 10/07/17 Blood Culture, Received Pending 10/07/17 Fungal Smear - Final, Resulted 10/07/17 Fungal Culture - Preliminary, Resulted NO YEAST OR FUNGUS ISOLATED - REPORT ... Assessment and Plan 37 yo M prisoner with Diabtes, Schizoaffective disorder p/w Left great toe ulcer suspicious for osteomyelitis Diabetic left foot ulcer-- Continue vancomycin IV and Zosyn IV. X-ray does not suggest osteomyelitis MRI Today to confirm afebrile, CBC wnl, F/u blood cx/s Diabetes mellitus- uncontrolled glycemic consult Schizoaffective disorder-- Continue risperidone 3 mg p.o. twice daily, Depakote delayed release 500 mg p.o. twice daily and clonazepam 0.5 mg p.o. twice daily. Hyperlipidemia-- Continue pravastatin 40 mg p.o. at bedtime and lisinopril 2.5 mg p.o. daily. Resident Physician Supervision Note: I interviewed and examined the patient. Discussed with Dr. Oliva and agree with findings and plan as documented in the note. Any exceptions or clarifications are listed here: None Documented By: Emigdio Chery no meanignful HPI or ROS vitals noted nad breathing unlabored toe w dull erythema and large black eschar uncontrolled DM w DM foot ulcer and high concern on osteomyelitis -abx as above, await MRI, continue insulins DVT proph - lovenox Continued [facility] stay due to: multiple IV medications needed Discharge planning: other (senior care) Resident Tracking Resident Involvement: Resident Care Provided Care Provided: Adult Hospital Medicine
[2017-10-08] MEDS ORDERED: HALOPERIDOL LACTATE 5 MG/ML 1 ML VIAL ONE (09:55)
[2017-10-08] MEDS: VANCOMYCIN IV 1,000 MG in SODIUM CHLORIDE 0.9% 250ML 250 ML IV SCH ×2 (10:06→20:02)
[2017-10-08] MEDS ORDERED: NURSING DECISION MEDICATION ORDER SCH (10:15)
[2017-10-08] MEDS ORDERED: LORAZEPAM INJ 1 MG in SYRINGE 0.5 ML IV PRN (12:10)
[2017-10-08] MEDS ORDERED: INSULIN HUMAN REGULAR PER IV STA (13:01)
[2017-10-08 14:50] VITALS: BP 102/69; PULSE 82; TEMP 36.7; O2SAT 100
--- NOTE | 2017-10-08 15:20 | Pharmacy Progress Note ---
Glycemic Control Intl Consult Date of Service Oct 08, 2017. Scope Glycemic Pharmacist consulted by Dr Oliva on 10/08/17 for glycemic control and to write orders per [facility] inpatient glycemic control protocol Objective Weight (Kilograms): 65.100 Accuchecks BSG (last 24hrs): Test 10/07/17 18:03 10/08/17 01:17 10/08/17 06:28 10/08/17 14:16 Random Glucose 225 mg/dl (70-99) 258 mg/dl (70-99) Bedside Glucose 177 mg/dl (70-99) 241 mg/dl (70-99) Laboratory Data (last 24hrs) Test 10/07/17 18:03 10/08/17 06:28 Anion Gap 8.0 mmol/L 5.0 mmol/L BUN/Creatinine Ratio 19.4 21.8 Blood Urea Nitrogen 16 mg/dl 14 mg/dl Creatinine 0.85 mg/dl 0.62 mg/dl Hemoglobin A1c 10.7 % Potassium Level 3.8 mmol/L 4.1 mmol/L Sodium Level 130 mmol/L 134 mmol/L White Blood Count 6.39 K/uL 6.54 K/uL Red Blood Count 3.83 M/uL 3.64 M/uL Hemoglobin 11.7 g/dL 11.1 g/dL Hematocrit 33.3 % 31.7 % Mean Corpuscular Volume 86.9 fL 87.1 fL Mean Corpuscular Hemoglobin 30.5 pg 30.5 pg Mean Corpuscular Hemoglobin Concent 35.1 g/dl 35.0 g/dl Platelet Count 202 K/uL 181 K/uL Mean Platelet Volume 9.6 fL 9.5 fL Neutrophils (%) (Auto) 80.0 % 70.7 % Lymphocytes (%) (Auto) 13.0 % 19.7 % Monocytes (%) (Auto) 6.6 % 8.6 % Eosinophils (%) (Auto) 0.0 % 0.6 % Basophils (%) (Auto) 0.2 % 0.2 % Neutrophils # (Auto) 5.12 K/uL 4.63 K/uL Lymphocytes # (Auto) 0.83 K/uL 1.29 K/uL Monocytes # (Auto) 0.42 K/uL 0.56 K/uL Eosinophils # (Auto) 0.00 K/uL 0.04 K/uL Basophils # (Auto) 0.01 K/uL 0.01 K/uL HbA1c Test 10/07/17 18:03 Hemoglobin A1c 10.7 % (4.5-5.6) H Recent Pertinent Medications Outpatient Anti-diabetic Regimen: * Lantus 10units QAM, 13units QPM, Regular insulin SSI * A1c = 10.7 % 10/07/17 Risk Factors for Insulin Resistance: * Infection:Diabetic foot infxn Assessment & Plan ASSESSMENT: * Mr. Ray is a 37yo type 1 diabetic with schizoaffective dx. He is unfamiliar to the pharmacy glycemic service. P/w diabetic left foot ulcer being treated with vancomycin and zosyn. Admitted overnight. He did not receive 10/07/17 's evening dose of lantus. BSG's ranging from 225 - 333 over the previous 24hrs , lab values not indicative of DKA at this juncture. He endorses lantus 10units QAM & 13unitsQPM, SSI. 10/09/17 PLAN FOR INPATIENT GLYCEMIC CONTROL: * BSGs remain in the 300s despite appropriately covering him metabolically and with correctional insulin. Unsure of Mr. Ray's insulin requirements with a concurrent foot infxn. Will initiate an insulin gtt in an effort to prevent any further hyperglycemia. Lab values continue to be WNL. * Will provide home lantus doses w/ gtt this afternoon and HS. * BSGs w/ gtt look better: 164-191-210. Rate: 1.6units/hr-2.2units/hr-1.4units/ hr-1.7units/hr 10/08/17 PLAN FOR INPATIENT GLYCEMIC CONTROL: * Basal insulin with LANTUS 20units given this AM to cover 10/07/17's missed PM dose and provide metabolic coverage for the AM dose * Lantus scale ordered for HS of 10/08/17 * Correctional Insulin with NOVOLOG per scale ACHS & checks * Received IV regular insulin 7units x1 (0.1unit/kg) this afternoon * Goal Range: Low 110 mg/dL - High 140 mg/dL * Correction Factor: 30 mg/dL/unit * Nutritional / Prandial insulin per carb ratio of 1 unit per 10 grams CHO consumed *Possible* Considerations for Discharge: * Increase meal time coverage * Please note that the plan above was derived based on current level of insulin resistance and hospital stress. These recommendations are appropriate for inpatient admission only. Plan of care upon discharge will need to be reassessed to avoid potential outpatient hypo/hyperglycemia. Thank you.
[2017-10-08 16:00] VITALS: O2SAT 100
[2017-10-08 16:13] VITALS: BMI 20.0
--- NOTE | 2017-10-08 16:42 | DIAGNOSTIC IMAGING REPORT ---
LEFT FOREFOOT MRI HISTORY: First toe ulcer, r/o osteomyelitis TECHNIQUE: Multiplanar multisequence MRI of the left forefoot was performed without the use of intravenous contrast. COMPARISON STUDY: Left foot 10/07/2017. FINDINGS: Only sagittal sequences and a single coronal T1 sequences were obtained. The patient refused further imaging. There is also motion artifact throughout the examination. This results in suboptimal evaluation of the forefoot. There is soft tissue edema throughout the first toe. There is also edema-like marrow signal within the proximal and distal phalanx of the first toe. This most pronounced at the distal phalanx. T1 signal in the distal phalanx may be slightly hypointense compared to the remaining osseous structures. The T1 signal within the proximal phalanx of the first toe is preserved. No definite cortical erosions. However, this is difficult to assess due to the motion artifact. IMPRESSION: Suboptimal study due to the incomplete sequences and motion artifact. Above findings are consistent with osteitis involving the proximal and distal phalanx of the first toe. There is possible borderline hypointense T1 signal at the distal phalanx which could represent a developing osteomyelitis. Electronically signed by: Ildefonso Puentes M.D. 10/08/2017 4:40 PM Dictated Date/Time: 10/08/2017 4:35 PM
[2017-10-08] MEDS: ACETAMINOPHEN 325 MG TAB PO PRN (16:43)
[2017-10-08] MEDS: PRAVASTATIN SOD 40 MG TAB PO SCH (20:04)
[2017-10-08] MEDS ORDERED: INSULIN GLARGINE SOLOSTAR 100 UNITS/ML 3 ML PEN SC SCH ×2 (22:00)
[2017-10-08 23:27] VITALS: BP 99/64; PULSE 85; TEMP 36.8; O2SAT 97
[2017-10-08 23:59] VITALS: O2SAT 97
[2017-10-09] MEDS: INSULIN ASPART 100 UNITS/ML 3 ML PEN SC SCH ×6 (00:21→22:09)
[2017-10-09] MEDS: PIPERACILL/TAZOBAC IV 3.375 GM in DEXTROSE 5% 100ML 100 ML IV SCH ×3 (04:48→21:50)
[2017-10-09] MEDS ORDERED: VANCOMYCIN TROUGH ONE (05:30)
--- NOTE | 2017-10-09 05:46 | Family Medicine Progress Note ---
Progress Note Date of Service Oct 09, 2017. Subjective Pt evaluation today including: conversation w/ patient, conversation w/ family , physical exam, chart review, lab review, review of studies, review of inpatient medication list Pain: denies PO Intake: adequate Voiding: no voiding problems Patients Blood sugar has been > Medications Current Inpatient Medications Medications (Trade) Dose Ordered Sig/Kunal Route Start Time Stop Time Status Last Admin Dose Admin Ioversol (Optiray 320) 100 ml UD PRN IV 10/07/17 18:00 10/11/17 17:59 Enoxaparin Sodium (Lovenox Inj) 40 mg Q24H SQ 10/08/17 08:00 11/07/17 07:59 10/09/17 07:57 40 MG Acetaminophen (Tylenol Tab) 650 mg Q4H PRN PO 10/07/17 21:30 11/06/17 21:29 10/08/17 16:43 650 MG Al Hydrox/Mg Hydrox/Simethicone (Maalox Max Susp) 15 ml Q4H PRN PO 10/07/17 21:30 11/06/17 21:29 Magnesium Hydroxide (Milk Of Magnesia Susp) 30 ml Q6H PRN PO 10/07/17 21:30 11/06/17 21:29 Polyethylene (Miralax Powder Packet) 17 gm DAILY PRN PO 10/07/17 21:30 11/06/17 21:29 Ondansetron HCl (Zofran Odt) 8 mg Q6H PRN PO 10/07/17 21:30 11/06/17 21:29 Glucose (Glucose 40% Gel) 15-30 GRAMS 15 GRAMS... UD PRN PO 10/07/17 21:30 11/06/17 21:29 Glucose (Glucose Chew Tab) 4-8 Tablets 4 Tabl... UD PRN PO 10/07/17 21:30 11/06/17 21:29 Dextrose (Dextrose 50% 50ML Syringe) 25-50ML OF 50% DW IV FOR... UD PRN IV 10/07/17 21:30 11/06/17 21:29 Glucagon (Glucagon Inj) 1 mg UD PRN SQ 10/07/17 21:30 11/06/17 21:29 Piperacillin Sod/ Tazobactam Sod 3.375 gm/Dextrose 115 ml @ 28 mls/hr Q8H IV 10/08/17 02:00 10/18/17 01:59 10/09/17 04:48 28 MLS/HR Clonazepam (Klonopin Tab) 0.5 mg BID PO 10/08/17 08:00 11/07/17 08:59 10/09/17 07:57 0.5 MG Divalproex Sodium (Depakote Delay Rel Tab) 500 mg BID PO 10/08/17 08:00 11/07/17 08:59 10/09/17 07:57 500 MG Lisinopril (Zestril Tab) 2.5 mg QAM PO 10/08/17 08:00 11/07/17 08:59 10/09/17 07:57 2.5 MG Pravastatin Sodium (Pravachol Tab) 40 mg HS PO 10/08/17 21:00 11/07/17 20:59 10/08/17 20:04 40 MG Risperidone (Risperdal Tab) 3 mg BID PO 10/08/17 08:00 11/07/17 08:59 10/09/17 07:57 3 MG Miscellaneous Information (Order Awaiting Action) 1 ea QS N/A 10/08/17 00:00 11/07/17 00:00 Miscellaneous Information (Consult) 1 ea UD PRN N/A 10/07/17 21:30 11/06/17 21:29 Miscellaneous Information (Consult) 1 ea UD PRN N/A 10/07/17 21:30 11/06/17 21:29 Miscellaneous (Iv Fluids Completed) 1 ea PRN PRN N/A 10/07/17 23:45 10/07/18 23:44 Miscellaneous Information (Consult Glycemic Management Pharmacy) 1 ea UD PRN N/A 10/08/17 07:55 11/07/17 07:54 Insulin Aspart (novoLOG ASPART) SLIDING SCALE PCHS SC 10/09/17 09:00 11/08/17 08:59 10/09/17 10:08 7 UNITS Vancomycin HCl 1000 mg/Sodium Chloride 270 ml @ 125 mls/hr Q8H IV 10/09/17 10:00 10/19/17 09:59 10/09/17 09:45 125 MLS/HR Insulin Human Regular 250 units/ Sodium Chloride 252.5 ml @ 0 mls/hr Q24H IV 10/09/17 08:45 11/08/17 08:44 10/09/17 11:20 1.8 MLS/HR Miscellaneous Information (Pending Order) QS N/A 10/09/17 16:00 11/08/17 15:59 Potassium Chloride/Sodium Chloride 1,000 ml @ 100 mls/hr Q10H IV 10/09/17 11:00 11/08/17 10:59 10/09/17 11:22 100 MLS/HR Objective Vital Signs Date Time Temp Pulse Resp B/P (MAP) Pulse Ox O2 Delivery O2 Flow Rate FiO2 10/09/17 08:00 Room Air 10/09/17 06:56 36.4 85 19 110/79 (89) 100 Room Air 10/08/17 23:59 97 Room Air 10/08/17 23:27 36.8 85 19 99/64 (76) 97 Room Air 10/08/17 16:00 100 Room Air 10/08/17 14:50 36.7 82 18 102/69 (80) 100 Room Air Physical Exam Notes: General Appearance: WD/WN, no apparent distress Eyes: normal inspection, PERRL, sclerae normal Neck: supple, no adenopathy, trachea midline Respiratory/Chest: lungs clear, normal breath sounds, no respiratory distress, no accessory muscle use Cardiovascular: regular rate, rhythm, no edema, no murmur Abdomen: normal bowel sounds, non tender, soft Extremities: + pertinent finding (Left great toe black eschar on plantar surface, nontender, FROM , no sensation on palpation) Neurologic/Psychiatric: alert, oriented x 3 Laboratory Results Results Past 24 Hours Test 10/08/17 11:43 10/08/17 14:16 10/08/17 16:31 10/08/17 20:05 Range/Units Bedside Glucose 312 241 239 261 70-99 mg/dl Test 10/09/17 00:15 10/09/17 04:10 10/09/17 05:22 10/09/17 07:19 Range/Units Bedside Glucose 303 341 225 70-99 mg/dl White Blood Count 4.59 4.8-10.8 K/uL Red Blood Count 3.72 4.7-6.1 M/uL Hemoglobin 11.2 14.0-18.0 g/dL Hematocrit 32.6 42-52 % Mean Corpuscular Volume 87.6 80-100 fL Mean Corpuscular Hemoglobin 30.1 25-34 pg Mean Corpuscular Hemoglobin Concent 34.4 32-36 g/dl Platelet Count 206 130-400 K/uL Mean Platelet Volume 9.7 7.4-10.4 fL Neutrophils (%) (Auto) 63.8 % Lymphocytes (%) (Auto) 26.4 % Monocytes (%) (Auto) 8.1 % Eosinophils (%) (Auto) 1.5 % Basophils (%) (Auto) 0.2 % Neutrophils # (Auto) 2.93 1.4-6.5 K/uL Lymphocytes # (Auto) 1.21 1.2-3.4 K/uL Monocytes # (Auto) 0.37 0.11-0.59 K/uL Eosinophils # (Auto) 0.07 0-0.5 K/uL Basophils # (Auto) 0.01 0-0.2 K/uL RDW Standard Deviation 41.8 36.4-46.3 fL RDW Coefficient of Variation 12.9 11.5-14.5 % Immature Granulocyte % (Auto) 0.0 % Immature Granulocyte # (Auto) 0.00 0.00-0.02 K/uL Prothrombin Time 9.9 9.0-12.0 SECONDS Prothromb Time International Ratio 0.9 0.9-1.1 Activated Partial Thromboplast Time 32.2 21.0-31.0 SECONDS Partial Thromboplastin Ratio 1.2 Sodium Level 134 136-145 mmol/L Potassium Level 4.1 3.5-5.1 mmol/L Chloride Level 99 98-107 mmol/L Carbon Dioxide Level 30 21-32 mmol/L Anion Gap 5.0 3-11 mmol/L Blood Urea Nitrogen 15 7-18 mg/dl Creatinine 0.65 0.60-1.40 mg/dl Est Creatinine Clear Calc Drug Dose 141.9 ml/min Estimated GFR () 143.0 Estimated GFR (Non- 123.4 BUN/Creatinine Ratio 23.5 10-20 Random Glucose 318 70-99 mg/dl Calcium Level 8.3 8.5-10.1 mg/dl Magnesium Level 2.2 1.8-2.4 mg/dl Beta-Hydroxybutyric Acid 1.81 0.2-2.81 mg/dL Vancomycin Level Trough 5.6 SEE COMMENT mcg/ml Test 10/09/17 10:01 10/09/17 11:13 Range/Units Bedside Glucose 388 264 70-99 mg/dl Assessment and Plan 37 yo M prisoner with Diabtes, Schizoaffective disorder p/w Left great toe ulcer complicated by osteomyelitis Diabetic left foot ulcer of Great toe, complicated by osteromyelitis -- Continue vancomycin IV and Zosyn IV. X-ray does not suggest osteomyelitis MR findings consistent with osteomyelitis afebrile, CBC wnl, F/u blood cx/s seen by Orthopedics, plan for amputation on 10/10 Diabetes mellitus- uncontrolled 200's- 300's glycemic consult Insulin drip started , IV fluids F/u BSG, BMP's Schizoaffective disorder-- Continue risperidone 3 mg p.o. twice daily Depakote delayed release 500 mg p.o. twice daily clonazepam 0.5 mg p.o. twice daily. Hyperlipidemia-- Continue pravastatin 40 mg p.o. at bedtime and lisinopril 2.5 mg p.o. daily. DVT PPX -Lovenox Code status Full Resus Resident Physician Supervision Note: I interviewed and examined the patient. Discussed with Dr. Oliva and agree with findings and plan as documented in the note. Any exceptions or clarifications are listed here: None Documented By: Emigdio Chery feeling ok. mostly wants boost supplements happy his toe has to come off because it'll be symmetric osteomyelitis - abx, surgery tomorrow DM - improved control Continued [facility] stay due to: multiple IV medications needed Discharge planning: other (snf) Resident Tracking Resident Involvement: Resident Care Provided Care Provided: Adult Hospital Medicine
[2017-10-09 06:19] LABS: BASO % 0.2 %; BASO ABS # 0.01 K/uL (0-0.2); EOS % 1.5 %; EOS ABS # 0.07 K/uL (0-0.5); HEMATOCRIT 32.6 % (42-52); HEMOGLOBIN 11.2 g/dL (14.0-18.0); LYMPH % 26.4 %; LYMPH ABS # 1.21 K/uL (1.2-3.4); MEAN CELL VOLUME 87.6 fL (80-100); MEAN CORPUSCULAR HEMOGLOBIN 30.1 pg (25-34); MEAN CORPUSCULAR HGB CONC 34.4 g/dl (32-36); MEAN PLATELET VOLUME 9.7 fL (7.4-10.4); MONO % 8.1 %; MONO ABS # 0.37 K/uL (0.11-0.59); NEUT % 63.8 %; NEUT ABS # 2.93 K/uL (1.4-6.5); PLATELET COUNT 206 K/uL (130-400); RED CELL DISTRIBUTION WIDTH CV 12.9 % (11.5-14.5); RED CELL DISTRIBUTION WIDTH SD 41.8 fL (36.4-46.3); WHITE BLOOD COUNT 4.59 K/uL (4.8-10.8)
[2017-10-09] MEDS: VANCOMYCIN IV 1,000 MG in SODIUM CHLORIDE 0.9% 250ML 250 ML IV SCH ×3 (06:23→17:51)
[2017-10-09 06:30] LABS: INR 0.9 (0.9-1.1); PTT PATIENT 32.2 SECONDS (21.0-31.0)
[2017-10-09 06:42] LABS: CALCIUM 8.3 mg/dl (8.5-10.1); CREATININE 0.65 mg/dl (0.60-1.40); POTASSIUM 4.1 mmol/L (3.5-5.1)
[2017-10-09 06:56] VITALS: BP 110/79; PULSE 85; TEMP 36.4; O2SAT 100
[2017-10-09] MEDS: DIVALPROEX SODIUM 500 MG DELAY RELEASE TAB PO SCH ×2 (07:57→22:05)
[2017-10-09] MEDS: ENOXAPARIN 40 MG/0.4 ML SYR SQ SCH (07:57)
[2017-10-09] MEDS: RISPERIDONE 3 MG TAB PO SCH ×2 (07:57→21:56)
[2017-10-09] MEDS: CLONAZEPAM 0.5 MG TAB PO SCH ×2 (07:57→22:03)
[2017-10-09] MEDS: LISINOPRIL 2.5 MG TAB PO SCH (07:57)
[2017-10-09] MEDS ORDERED: INSULIN PROTOCOL GOAL RANGE STA (08:00)
[2017-10-09] MEDS ORDERED: MODERATE STRESS LEVEL STA (08:02)
[2017-10-09] MEDS ORDERED: INSULIN IV INFUSION PROTOCOL SCH (08:05)
--- NOTE | 2017-10-09 08:33 | Pharmacy Progress Note ---
Pharmacy Abx Dose Progress Nt Date of Service Oct 09, 2017. Pharmacy Dosing Scope The patient is currently receiving the following antimicrobial agents per Pharmacy consult: Vanco/Zosyn Objective Height (Feet): 5 Height (Inches): 11.00 Weight (Kilograms): 65.100 Vital Signs (Past 12Hrs) Vital Signs Past 12 Hours Date Time Temp Pulse Resp B/P (MAP) Pulse Ox O2 Delivery O2 Flow Rate FiO2 10/09/17 06:56 36.4 85 19 110/79 (89) 100 Room Air 10/08/17 23:59 97 Room Air 10/08/17 23:27 36.8 85 19 99/64 (76) 97 Room Air Lab Results (24Hrs) Laboratory Tests (24 Hours) Test 10/09/17 05:22 White Blood Count 4.59 K/uL (4.8-10.8) L Red Blood Count 3.72 M/uL (4.7-6.1) L Hemoglobin 11.2 g/dL (14.0-18.0) L Hematocrit 32.6 % (42-52) L Mean Corpuscular Volume 87.6 fL (80-100) Mean Corpuscular Hemoglobin 30.1 pg (25-34) Mean Corpuscular Hemoglobin Concent 34.4 g/dl (32-36) Platelet Count 206 K/uL (130-400) Mean Platelet Volume 9.7 fL (7.4-10.4) Neutrophils (%) (Auto) 63.8 % Lymphocytes (%) (Auto) 26.4 % Monocytes (%) (Auto) 8.1 % Eosinophils (%) (Auto) 1.5 % Basophils (%) (Auto) 0.2 % Neutrophils # (Auto) 2.93 K/uL (1.4-6.5) Lymphocytes # (Auto) 1.21 K/uL (1.2-3.4) Monocytes # (Auto) 0.37 K/uL (0.11-0.59) Eosinophils # (Auto) 0.07 K/uL (0-0.5) Basophils # (Auto) 0.01 K/uL (0-0.2) Micro Results Date/Time Source Procedure Growth Status 10/07/17 18:37 Blood Blood Culture - Preliminary NO GROWTH TO DATE. Resulted 10/07/17 18:10 Blood Blood Culture - Preliminary NO GROWTH TO DATE. Resulted 10/07/17 18:26 Throat Fungal Smear - Final Resulted 10/07/17 18:26 Throat Fungal Culture - Preliminary Resulted Assessment & Plan Assessment Mr. Ray is a 37yo M being treated with Vanco/Zosyn for a diabetic foot infection. BC are both NGTD. Nil leukocytosis, afebrile. Current population p' kinetics: t1/2=6.6, ke=0.104. Plan Vancomycin: * Trough prior to Css subtherapeutic, 5.6mcg/mL * Will adjust dosing interval from q10 to q8. I feel Css may be close to 8 mcg/ mL. * Trough ordered for 10/10/17 @930 * Goal trough 10-15mcg/mL for cellulitis Zosyn: * Appropriately dosed based on clinical status and habitus Pharmacy will continue to follow and will adjust dose/frequency as necessary. Thank you.
[2017-10-09] MEDS ORDERED: INSULIN HUMAN REGULAR IV BOLUS 1.5 UNIT in SYRINGE 0 ML IV ONE (08:45)
[2017-10-09] MEDS: INSULIN REGULAR 250 UNITS in SODIUM CHLORIDE 0.9% 250ML 250 ML IV SCH ×7 (08:57→15:16)
--- NOTE | 2017-10-09 09:09 | ORTHOPEDIC CONSULTATION ---
DATE OF ADMISSION: 10/07/2017 CHIEF COMPLAINT: Left toe pain. HISTORY OF PRESENT ILLNESS: Adam is pleasant. He is a prisoner, but very conversant and pleasant to be here this morning. He has a 1-year duration of left great toe pain infected, purulence not improving. PAST MEDICAL HISTORY: He has a schizophrenic disorder and diabetes. SOCIAL HISTORY: Nonsmoker, nonalcohol use. IMMUNIZATIONS: Up to date. ALLERGIES: None. MEDICATIONS: Reviewed. REVIEW OF SYSTEMS: Denies any fevers, sweats, chills, bowel or bladder issues. No chest pain, shortness of breath. Only complaint is his left lower extremity. OBJECTIVE: VITAL SIGNS: 36.9 temperature. NEUROVASCULAR: Vascular structure seemingly intact. EXTREMITIES: Large grade ulcer underneath the great toe on the left, black, slight purulence slight erythema. X-rays normal. IMPRESSION: Cellulitis, osteomyelitis and infection left great toe in diabetic 37-year-old prisoner. One year duration of symptoms. DISPOSITION: Includes a toe amputation. We will do that tomorrow. It was his request, I concur. I know we can just drag this on longer, but I think to get behind this is probably most appropriate pathway.
[2017-10-09] MEDS: NSS + 20MEQ KCL 1000ML 1,000 ML IV SCH ×2 (11:22→21:50)
[2017-10-09 12:40] VITALS: Ht 180.3 cm; Wt 65.1 kg
[2017-10-09] MEDS ORDERED: INSULIN GLARGINE SOLOSTAR 100 UNITS/ML 3 ML PEN SC STA (14:08)
[2017-10-09 15:12] VITALS: BP 111/74; PULSE 88; TEMP 36.4; O2SAT 98
[2017-10-09 16:00] VITALS: O2SAT 98
[2017-10-09] MEDS ORDERED: [UNRECOGNIZED DRUG - REMARK] SCH (16:00)
[2017-10-09] MEDS: ACETAMINOPHEN 325 MG TAB PO PRN ×2 (16:19→22:04)
--- NOTE | 2017-10-09 20:19 | Pharmacy Progress Note ---
Pharmacy Glycemic Short Note 2 Date of Service Oct 09, 2017. ASSESSMENT: * Rec'd call from RN earlier this evening re: BSG of 96 and insulin drip to be placed on hold * Insulin drip needs have significantly decreased, Lantus dose was given ~2 hrs prior * Will plan to d/c insulin drip at this time * Noted that patient will be NPO after midnight so will plan to slightly reduce PM dose of Lantus in case BSGs remain on lower end PLAN FOR INPATIENT GLYCEMIC CONTROL: * D/C insulin drip at 1600 * Basal insulin * Continue Lantus 13 units x 1 tonight but reduce to 10 units if BSG remains below 110 mg/dL * Bolus insulin * NovoLog per scale ACHS or Q6hrs while NPO * Goal Range: Low 110 mg/dL - High 150 mg/dL * Correction Factor: 30 mg/dL/unit * Nutritional / Prandial insulin per carb ratio of 1 unit per 12 grams CHO consumed
[2017-10-09] MEDS ORDERED: INSULIN GLARGINE SOLOSTAR 100 UNITS/ML 3 ML PEN SC ONE ×2 (21:00)
[2017-10-09] MEDS: PRAVASTATIN SOD 40 MG TAB PO SCH (21:56)
[2017-10-10] VITALS (8 sets, daily range): BP systolic 99–113; BP diastolic 68–76; PULSE 67–78; TEMP 36.3–36.4; O2SAT 97–100
[2017-10-10] MEDS: VANCOMYCIN IV 1,000 MG in SODIUM CHLORIDE 0.9% 250ML 250 ML IV SCH ×2 (00:59→13:41)
[2017-10-10] MEDS: PIPERACILL/TAZOBAC IV 3.375 GM in DEXTROSE 5% 100ML 100 ML IV SCH ×3 (04:54→21:49)
[2017-10-10 06:59] LABS: BASO % 0.3 %; BASO ABS # 0.01 K/uL (0-0.2); EOS % 2.5 %; EOS ABS # 0.08 K/uL (0-0.5); HEMATOCRIT 32.8 % (42-52); HEMOGLOBIN 11.2 g/dL (14.0-18.0); IG# 0.01 K/uL (0.00-0.02); LYMPH ABS # 1.24 K/uL (1.2-3.4); MEAN CELL VOLUME 87.7 fL (80-100); MEAN CORPUSCULAR HEMOGLOBIN 29.9 pg (25-34); MEAN CORPUSCULAR HGB CONC 34.1 g/dl (32-36); MEAN PLATELET VOLUME 9.4 fL (7.4-10.4); MONO % 8.8 %; MONO ABS # 0.28 K/uL (0.11-0.59); NEUT % 49.1 %; NEUT ABS # 1.56 K/uL (1.4-6.5); PLATELET COUNT 217 K/uL (130-400); RED CELL DISTRIBUTION WIDTH SD 42.1 fL (36.4-46.3); WHITE BLOOD COUNT 3.18 K/uL (4.8-10.8)
[2017-10-10 07:11] LABS: INR 0.9 (0.9-1.1); PTT PATIENT 32.6 SECONDS (21.0-31.0)
[2017-10-10 07:33] LABS: BLOOD UREA NITROGEN 8 mg/dl (7-18); CARBON DIOXIDE 28 mmol/L (21-32); CREATININE 0.54 mg/dl (0.60-1.40); GLUCOSE 121 mg/dl (70-99); POTASSIUM 4.2 mmol/L (3.5-5.1); SODIUM 139 mmol/L (136-145)
[2017-10-10] MEDS: INSULIN ASPART 100 UNITS/ML 3 ML PEN SC SCH ×5 (07:59→22:04)
[2017-10-10] MEDS: DIVALPROEX SODIUM 500 MG DELAY RELEASE TAB PO SCH ×2 (08:00→21:51)
[2017-10-10] MEDS: LISINOPRIL 2.5 MG TAB PO SCH (08:00)
[2017-10-10] MEDS: BOOST GLUCOSE CONTROL PO SCH ×2 (08:00→21:48)
[2017-10-10] MEDS: ENOXAPARIN 40 MG/0.4 ML SYR SQ SCH (08:00)
[2017-10-10] MEDS: RISPERIDONE 3 MG TAB PO SCH ×2 (08:00→21:51)
[2017-10-10] MEDS: CLONAZEPAM 0.5 MG TAB PO SCH ×2 (08:00→21:49)
[2017-10-10] MEDS ORDERED: INSULIN GLARGINE SOLOSTAR 100 UNITS/ML 3 ML PEN SC SCH ×2 (08:00→22:00)
[2017-10-10] MEDS: NSS + 20MEQ KCL 1000ML 1,000 ML IV SCH ×2 (08:35→17:00)
--- NOTE | 2017-10-10 08:49 | Pharmacy Progress Note ---
Glycemic Control Progress Note Date of Service Oct 10, 2017. Scope Glycemic Pharmacist consulted for glycemic control to write orders per [facility] inpatient glycemic control protocol. Objective Accuchecks BSG (last 24hrs): Test 10/09/17 10:01 10/09/17 11:13 10/09/17 11:59 10/09/17 13:00 Bedside Glucose 388 mg/dl (70-99) 264 mg/dl (70-99) 191 mg/dl (70-99) 210 mg/dl (70-99) Test 10/09/17 14:06 10/09/17 15:03 10/09/17 16:03 10/09/17 20:47 Bedside Glucose 164 mg/dl (70-99) 139 mg/dl (70-99) 96 mg/dl (70-99) 156 mg/dl (70-99) Test 10/10/17 06:37 10/10/17 07:38 Random Glucose 121 mg/dl (70-99) Bedside Glucose 116 mg/dl (70-99) HbA1c: Test 10/07/17 18:03 Hemoglobin A1c 10.7 % (4.5-5.6) H Recent Pertinent Medications The patient is currently receiving: * Basal insulin: Lantus 10 units in the morning and 13 units in the PM * Correctional Insulin: Novolog Correction per scale ACHS Goal Range: Low 110 mg/dL - High 150 mg/dL Correction Factor: 30 mg/dL/unit * Prandial insulin: Per carb ratio of 1 unit per 12 grams CHO consumed Outpatient Anti-Diabetic Meds Lantus 10 units in morning and 13 units in PM plus regular insulin sliding scale Assessment & Plan ASSESSMENT: * See progress note from 10/08/17 for more background info, in short: * Pt receiving SQ basal bolus insulin regimen for hyperglycemia secondary to baseline DM (outpatient regimen on hold), chronic osteomyelitis of toe, POD 0 for great toe amputation * Patient is currently receiving an average of ~45 units of insulin per day on top of insulin infusion discontinued yesterday at 1700 * 23 units of basal insulin * 22 units of prandial/correctional insulin * BSGs ranging 96 - 388 mg/dl over the past 24hrs * Changes needed to insulin regimen: * AM Fasting BSG = 116 mg/dl. This is in goal range for patient based on inpatient targets and co-morbidities. The patient was transitioned off an insulin infusion yesterday that ran from around 0800 to 1700. He received 23 units of basal which is his home dose. Patient is currently NPO for great toe amputation. Therefore decreased basal by half for right now. Scheduled patient to receive full dose of Lantus tonight if diet is ordered and tolerating. If not , given half-dose. * Post-prandial BSGs have not been evaluated as parameters just started yesterday. Monitor closely. * Total daily dose = ~40 units. Monitor closely as patient has been on insulin infusion yesterday so true needs are not known. PLAN FOR INPATIENT GLYCEMIC CONTROL: * Give Lantus 5 units SQ this morning then 7 or 13 units tonight depending on diet * Continuing correction factor of 30 mg/dl/unit * Continuing carb ratio of 1 unit per 12 grams CHO consumed * Continuing goal range of Low 110 mg/dL - High 150 mg/dL RECOMMENDATIONS FOR DISCHARGE: * Patient's HbA1C is not well controlled. Recommend working with physician within the care home to titrate to desired blood sugars. Goal HbA1C per age and co- morbidities 7.6-8.0% per the Elements of Diabetes Care Scoring Scale. Thank you.
[2017-10-10] MEDS ORDERED: PROPOFOL IV EMULSION 10 MG/ML 20 ML VIAL IV ONE (09:25)
[2017-10-10] MEDS ORDERED: MIDAZOLAM HCL 1 MG/ML 2ML VIAL ONE (09:25)
[2017-10-10] MEDS ORDERED: LIDOCAINE HCL 2% 2 ML VIAL (20MG/ML) ONE (09:25)
[2017-10-10] MEDS ORDERED: FENTANYL CITRATE INJ 50 MCG/1 ML 2 ML VIAL ONE ×2 (09:25→11:06)
[2017-10-10] MEDS ORDERED: VANCOMYCIN TROUGH ONE (09:30)
--- NOTE | 2017-10-10 09:38 | Family Medicine Progress Note ---
Progress Note Date of Service Oct 10, 2017. Subjective Pt evaluation today including: conversation w/ patient, physical exam, chart review, lab review, review of studies, review of inpatient medication list Pain: denies PO Intake: NPO No acute events overnight. Patient denies foot pain, He denies Chest pain, SOB , palpitation. calf tenderness Constitutional: No fever, No chills, No weakness Respiratory: No cough, No shortness of breath Cardiovascular: No chest pain, No edema, No palpitations Abdomen: No pain, No nausea, No vomiting, No diarrhea Musculoskeletal: No muscle pain, No swelling, No calf pain Medications Current Inpatient Medications Medications (Trade) Dose Ordered Sig/Kunal Route Start Time Stop Time Status Last Admin Dose Admin Ioversol (Optiray 320) 100 ml UD PRN IV 10/07/17 18:00 10/11/17 17:59 Enoxaparin Sodium (Lovenox Inj) 40 mg Q24H SQ 10/08/17 08:00 11/07/17 07:59 10/09/17 07:57 40 MG Acetaminophen (Tylenol Tab) 650 mg Q4H PRN PO 10/07/17 21:30 11/06/17 21:29 10/09/17 22:04 650 MG Al Hydrox/Mg Hydrox/Simethicone (Maalox Max Susp) 15 ml Q4H PRN PO 10/07/17 21:30 11/06/17 21:29 Magnesium Hydroxide (Milk Of Magnesia Susp) 30 ml Q6H PRN PO 10/07/17 21:30 11/06/17 21:29 Polyethylene (Miralax Powder Packet) 17 gm DAILY PRN PO 10/07/17 21:30 11/06/17 21:29 Ondansetron HCl (Zofran Odt) 8 mg Q6H PRN PO 10/07/17 21:30 11/06/17 21:29 Glucose (Glucose 40% Gel) 15-30 GRAMS 15 GRAMS... UD PRN PO 10/07/17 21:30 11/06/17 21:29 Glucose (Glucose Chew Tab) 4-8 Tablets 4 Tabl... UD PRN PO 10/07/17 21:30 11/06/17 21:29 Dextrose (Dextrose 50% 50ML Syringe) 25-50ML OF 50% DW IV FOR... UD PRN IV 10/07/17 21:30 11/06/17 21:29 Glucagon (Glucagon Inj) 1 mg UD PRN SQ 10/07/17 21:30 11/06/17 21:29 Piperacillin Sod/ Tazobactam Sod 3.375 gm/Dextrose 115 ml @ 28 mls/hr Q8H IV 10/08/17 02:00 10/18/17 01:59 10/11/17 05:43 28 MLS/HR Clonazepam (Klonopin Tab) 0.5 mg BID PO 10/08/17 08:00 11/07/17 08:59 10/10/17 21:49 0.5 MG Divalproex Sodium (Depakote Delay Rel Tab) 500 mg BID PO 10/08/17 08:00 11/07/17 08:59 10/09/17 07:57 500 MG Lisinopril (Zestril Tab) 2.5 mg QAM PO 10/08/17 08:00 11/07/17 08:59 10/09/17 07:57 2.5 MG Pravastatin Sodium (Pravachol Tab) 40 mg HS PO 10/08/17 21:00 11/07/17 20:59 10/10/17 21:50 40 MG Risperidone (Risperdal Tab) 3 mg BID PO 10/08/17 08:00 11/07/17 08:59 10/10/17 21:51 3 MG Miscellaneous Information (Order Awaiting Action) 1 ea QS N/A 10/08/17 00:00 11/07/17 00:00 Miscellaneous Information (Consult) 1 ea UD PRN N/A 10/07/17 21:30 11/06/17 21:29 Miscellaneous (Iv Fluids Completed) 1 ea PRN PRN N/A 10/07/17 23:45 10/07/18 23:44 Miscellaneous Information (Consult Glycemic Management Pharmacy) 1 ea UD PRN N/A 10/08/17 07:55 11/07/17 07:54 Potassium Chloride/Sodium Chloride 1,000 ml @ 100 mls/hr Q10H IV 10/09/17 11:00 11/08/17 10:59 10/11/17 03:18 100 MLS/HR Insulin Aspart (novoLOG ASPART) SLIDING SCALE If C... ACHS SC 10/09/17 16:30 11/08/17 16:29 10/10/17 17:45 9 UNITS Enteral Nutritional Formula (Boost Glucose Control) 1 can BID PO 10/10/17 08:00 11/09/17 07:59 10/10/17 21:48 1 CAN Oxycodone/ Acetaminophen (Percocet 5-325mg Tab) 1 tab Q4H PRN PO 10/10/17 10:45 10/11/17 10:44 Oxycodone/ Acetaminophen (Percocet 5-325mg Tab) 2 tab Q4H PRN PO 10/10/17 10:45 10/11/17 10:44 Ondansetron HCl (Zofran Inj) 4 mg Q6H PRN IV 10/10/17 10:45 10/11/17 10:44 Acetaminophen 1000 mg/Empty Bag 100 ml @ 400 mls/hr Q8H IV 10/10/17 12:00 11/09/17 11:59 10/11/17 03:36 400 MLS/HR Haloperidol Lactate (Haldol Inj) 5 mg DAILY PRN IM 10/10/17 21:45 11/09/17 21:44 10/10/17 22:13 5 MG Objective Vital Signs Date Time Temp Pulse Resp B/P (MAP) Pulse Ox O2 Delivery O2 Flow Rate FiO2 10/11/17 00:00 Room Air 10/10/17 16:00 98 Room Air 10/10/17 15:59 36.3 74 18 113/74 (87) 98 Room Air 10/10/17 12:42 36.4 74 18 102/76 (85) 97 Room Air 10/10/17 12:12 36.3 72 18 101/68 (79) 98 Room Air 10/10/17 12:05 98 Room Air 10/10/17 11:45 106/68 10/10/17 11:42 74 15 10/10/17 11:42 74 15 47/29 100 10/10/17 11:37 77 25 10/10/17 11:37 78 25 100 10/10/17 11:35 36.4 76 16 104/69 (73) 100 Nasal Cannula 2 10/10/17 11:32 80 20 96 10/10/17 11:32 76 20 10/10/17 11:31 104/69 10/10/17 11:27 81 59 100 10/10/17 11:27 81 59 10/10/17 11:26 108/70 10/10/17 11:24 72 16 100 10/10/17 11:24 71 16 10/10/17 11:21 108/76 10/10/17 11:19 62 17 10/10/17 11:19 62 17 100 10/10/17 11:16 109/74 10/10/17 11:14 76 6 100 10/10/17 11:14 74 6 10/10/17 11:11 106/81 10/10/17 11:09 74 7 100 10/10/17 11:09 74 7 10/10/17 11:06 97/69 10/10/17 11:04 75 17 10/10/17 11:04 73 17 100 10/10/17 11:02 108/69 10/10/17 11:01 78/45 10/10/17 10:59 85 16 10/10/17 10:59 71 16 96 10/10/17 10:56 96/67 10/10/17 10:56 88/50 10/10/17 10:54 75 8 96 10/10/17 10:54 75 8 10/10/17 10:51 102/67 10/10/17 10:49 72 10 10/10/17 10:49 70 10 100 10/10/17 10:45 98/60 10/10/17 10:44 36.4 75 16 98/60 (65) 100 Oxymask 10 10/10/17 10:44 73 11 99 10/10/17 10:44 75 11 10/10/17 08:00 99 Room Air 10/10/17 07:14 36.4 67 18 104/70 (81) 99 Room Air Physical Exam Notes: General Appearance: WD/WN, no apparent distress Eyes: normal inspection, PERRL, sclerae normal Neck: supple, no adenopathy, trachea midline Respiratory/Chest: lungs clear, normal breath sounds, no respiratory distress, no accessory muscle use Cardiovascular: regular rate, rhythm, no edema, no murmur Abdomen: normal bowel sounds, non tender, soft Extremities: + pertinent finding (Left Great toe black eschar on plantar surface, nontender, FROM , no sensation on palpation) Neurologic/Psychiatric: alert, oriented x 3 Laboratory Results Results Past 24 Hours Test 10/10/17 06:37 10/10/17 07:38 10/10/17 10:48 10/10/17 12:48 Range/Units White Blood Count 3.18 4.8-10.8 K/uL Red Blood Count 3.74 4.7-6.1 M/uL Hemoglobin 11.2 14.0-18.0 g/dL Hematocrit 32.8 42-52 % Mean Corpuscular Volume 87.7 80-100 fL Mean Corpuscular Hemoglobin 29.9 25-34 pg Mean Corpuscular Hemoglobin Concent 34.1 32-36 g/dl Platelet Count 217 130-400 K/uL Mean Platelet Volume 9.4 7.4-10.4 fL Neutrophils (%) (Auto) 49.1 % Lymphocytes (%) (Auto) 39.0 % Monocytes (%) (Auto) 8.8 % Eosinophils (%) (Auto) 2.5 % Basophils (%) (Auto) 0.3 % Neutrophils # (Auto) 1.56 1.4-6.5 K/uL Lymphocytes # (Auto) 1.24 1.2-3.4 K/uL Monocytes # (Auto) 0.28 0.11-0.59 K/uL Eosinophils # (Auto) 0.08 0-0.5 K/uL Basophils # (Auto) 0.01 0-0.2 K/uL RDW Standard Deviation 42.1 36.4-46.3 fL RDW Coefficient of Variation 13.0 11.5-14.5 % Immature Granulocyte % (Auto) 0.3 % Immature Granulocyte # (Auto) 0.01 0.00-0.02 K/uL Prothrombin Time 9.6 9.0-12.0 SECONDS Prothromb Time International Ratio 0.9 0.9-1.1 Activated Partial Thromboplast Time 32.6 21.0-31.0 SECONDS Partial Thromboplastin Ratio 1.3 Sodium Level 139 136-145 mmol/L Potassium Level 4.2 3.5-5.1 mmol/L Chloride Level 107 98-107 mmol/L Carbon Dioxide Level 28 21-32 mmol/L Anion Gap 4.0 3-11 mmol/L Blood Urea Nitrogen 8 7-18 mg/dl Creatinine 0.54 0.60-1.40 mg/dl Est Creatinine Clear Calc Drug Dose 170.8 ml/min Estimated GFR () > 150.0 Estimated GFR (Non- 133.2 BUN/Creatinine Ratio 14.0 10-20 Random Glucose 121 70-99 mg/dl Calcium Level 8.0 8.5-10.1 mg/dl Magnesium Level 2.2 1.8-2.4 mg/dl Bedside Glucose 116 148 70-99 mg/dl Vancomycin Level Trough 7.5 SEE COMMENT mcg/ml Test 10/10/17 16:40 10/10/17 20:36 10/11/17 04:44 10/11/17 05:20 Range/Units Bedside Glucose 236 206 70-99 mg/dl Assessment and Plan 37 yo M prisoner with Diabetes, Schizoaffective disorder p/w Left great toe ulcer complicated by osteomyelitis Diabetic left foot ulcer of Great toe, complicated by osteomyelitis -- Continue vancomycin IV and Zosyn IV. MRI findings consistent with osteomyelitis afebrile, CBC wnl, blood cx/s seen by Orthopedics Amputation scheduled today Diabetes mellitus- uncontrolled 200's- 300's glycemic consult had been Insulin drip started, transitioned to Sliding Scale F/u BSG, BMP's Schizoaffective disorder-- Continue risperidone 3 mg p.o. twice daily Depakote delayed release 500 mg p.o. twice daily clonazepam 0.5 mg p.o. twice daily. Hyperlipidemia-- Continue pravastatin 40 mg p.o. at bedtime and lisinopril 2.5 mg p.o. daily. DVT PPX -Lovenox Code status Full Resus Resident Physician Supervision Note: I interviewed and examined the patient. Discussed with Dr. Oliva and agree with findings and plan as documented in the note. Any exceptions or clarifications are listed here: None Documented By: Emigdio Chery feeling ok. groggy post op vitals noted nad breathing unlabored no pallor or icterus osteomyelitis - post op, doing well. will need to determine overall duration of abx DM - improved control continue current Continued [facility] stay due to: multiple IV medications needed Discharge planning: other (long-term) Resident Tracking Resident Involvement: Resident Care Provided Care Provided: Adult Hospital Medicine
--- NOTE | 2017-10-10 09:42 | History & Physical Bridge Note ---
H&P Re-Evaluation Bridge Note: I have examined the patient, reviewed the History & Physical and in the interval since the performance of the History & Physical I have noted the following changes of clinical significance: No changes noted
[2017-10-10] MEDS ORDERED: CEFAZOLIN SOD 1 GM VIAL ONE (10:17)
[2017-10-10] MEDS ORDERED: ONDANSETRON INJ 2 MG/ML 2 ML VIAL IV PRN ×2 (10:45→11:15)
[2017-10-10] MEDS ORDERED: OXYCODONE/ACETAMINOPHEN 5-325 TAB PO PRN ×2 (10:45)
--- NOTE | 2017-10-10 10:47 | [facility] Post Operative Brief Note ---
Immediate Operative Summary Operative Date Oct 10, 2017. Pre-Operative Diagnosis Left Great Toe Osteomyelitis Post-Operative Diagnosis Left Great Toe Osteomyelitis Procedure(s) Performed Left Great Toe Amputation Surgeon Dr. Brain [facility] Professor Surgeon(s) Alex Magallanes PA-C Estimated Blood Loss 0ML Findings Consistent with Post-Op Diagnosis Specimens Permanent Solution: A.) Left Great Toe Drains None Anesthesia Type MAC Complication(s) none Disposition Accompanied Pt To Recover: yes
--- NOTE | 2017-10-10 10:51 | Discharge Instructions ---
Discharge Instructions Date of Service Oct 10, 2017. Admission Reason for Admission: Diabetic Foot Ulcer Discharge Discharge Diagnosis / Problem: SAME ABOVE Discharge Goals Goal(s): Decrease discomfort, Improve function Activity Recommendations Activity Limitations: as noted below Lifting Limitations: gradually increase as tolerated Exercise/Sports Limitations: until after follow-up appointment Shower/Bathe: keep incision dry Weightbearing Status: Left weightbearing (as tolerated) . Instructions / Follow-Up Instructions / Follow-Up MEDICATIONS: * Resume previous medications unless instructed otherwise by your surgeon. * Always take pain medication on a full stomach or with food to avoid upset stomach. * Do not drink alcohol or drive while taking narcotics. * Ibuprofen or Tylenol may be taken if narcotic not needed. SPECIAL CARE INSTRUCTIONS: __ None _X_ Keep extremity elevated and iced x 48 hours; apply ice 20-30 minutes 8-10 times/day. May remove at night. __ Crutches __ May discard when able __ Brace/Post-op shoe __ 24 hrs/day __ Remove at night _X_ Dressing _X_ Maintain until seen in office, may shower with plastic over site __ Remove dressings in 24-48 hours and then may shower __ Cover incisions with band-aids after showering __ Do not remove steri-strips Call physician if chills or temperature rises above 102 degrees or pain unrelieved by prescribed pain medications. Office [phone] Current Hospital Diet Patient's current hospital diet: Diabetes Type 1 Diet Discharge Diet Recommended Diet: Diabetes Type 2 Diet Procedures Procedures Performed: Left Great Toe Amputation Pending Studies Studies pending at discharge: no Laboratory Results Hemoglobin A1c Test 10/07/17 18:03 Range/Units Estimated Average Glucose 260 mg/dl Hemoglobin A1c 10.7 H 4.5-5.6 % Lipid Panel Test 10/08/17 06:28 Range/Units Triglycerides Level 91 0-150 mg/dl Cholesterol Level 95 0-200 mg/dl HDL Cholesterol 38 mg/dl Cholesterol/HDL Ratio 2.5 LDL Cholesterol, Calculated 39 mg/dl Medical Emergencies . Who to Call and When: Medical Emergencies: If at any time you feel your situation is an emergency, please call 911 immediately. . Non-Emergent Contact Non-Emergency issues call your: Primary Care Provider . "Provider Documentation" section prepared by Alex Magallanes. .
[2017-10-10] MEDS: FENTANYL CITRATE INJ 50 MCG/1 ML 2 ML VIAL IV PRN ×2 (11:14→11:19)
[2017-10-10] MEDS ORDERED: HYDROmorphone INJ 2 MG/ML SYR/VIAL IV PRN (11:15)
[2017-10-10] MEDS ORDERED: EpHEDrine SULFATE INJ 50 MG/ML AMP IV PRN (11:15)
[2017-10-10] MEDS ORDERED: PROMETHAZINE HCL INJ 12.5 MG in SODIUM CHLORIDE 0.9% 50ML 50 ML IV PRN (11:15)
[2017-10-10] MEDS ORDERED: ATROPINE SULFATE 0.1 MG/ML 5ML SYR IV PRN (11:15)
[2017-10-10] MEDS ORDERED: LABETALOL HCL IV 5 MG/ML 20ML IV PRN (11:15)
[2017-10-10] MEDS ORDERED: PHENYLEPHRINE 100MCG/ML 5ML SYR IV PRN (11:15)
--- NOTE | 2017-10-10 11:34 | Anesthesiology Progress Note ---
Anesthesia Post Op Note Date & Time Oct 10, 2017 at 11:34 Vital Signs Pain Intensity: 0.0 Vital Signs Past 12 Hours Date Time Temp Pulse Resp B/P (MAP) Pulse Ox O2 Delivery O2 Flow Rate FiO2 10/10/17 11:26 108/70 10/10/17 11:24 72 16 100 10/10/17 11:24 71 16 10/10/17 11:21 108/76 10/10/17 11:19 62 17 10/10/17 11:19 62 17 100 10/10/17 11:16 109/74 10/10/17 11:14 76 6 100 10/10/17 11:14 74 6 10/10/17 11:11 106/81 10/10/17 11:09 74 7 100 10/10/17 11:09 74 7 10/10/17 11:06 97/69 10/10/17 11:04 75 17 10/10/17 11:04 73 17 100 10/10/17 11:02 108/69 10/10/17 11:01 78/45 10/10/17 10:59 85 16 10/10/17 10:59 71 16 96 10/10/17 10:56 96/67 10/10/17 10:56 88/50 10/10/17 10:54 75 8 96 10/10/17 10:54 75 8 10/10/17 10:51 102/67 10/10/17 10:49 72 10 10/10/17 10:49 70 10 100 10/10/17 10:45 98/60 10/10/17 10:44 36.4 75 16 98/60 (65) 100 Oxymask 10 10/10/17 10:44 73 11 99 10/10/17 10:44 75 11 10/10/17 08:00 99 Room Air 10/10/17 07:14 36.4 67 18 104/70 (81) 99 Room Air 10/10/17 00:28 36.4 78 18 99/68 (78) 100 Room Air 10/10/17 00:00 Room Air Notes Mental Status: alert / awake / arousable, participated in evaluation Pt Amnestic to Procedure: Yes Nausea / Vomiting: adequately controlled Pain: adequately controlled Airway Patency, RR, SpO2: stable & adequate BP & HR: stable & adequate Hydration State: stable & adequate Anesthetic Complications: no major complications apparent
--- NOTE | 2017-10-10 12:03 | OPERATIVE REPORT ---
DATE OF OPERATION: 10/10/2017 PREOPERATIVE DIAGNOSES: Gangrene and osteomyelitis, left great toe. POSTOPERATIVE DIAGNOSIS: Same. PROCEDURE: Amputation of left great toe. SURGEON: Dr. Cruz. SALES TRAINING COORDINATOR: Alex Magallanes PA-C. COMPLICATIONS: Zero. BLOOD LOSS: Zero. ANESTHETIC: Monitored local. DESCRIPTION OF PROCEDURE: The patient was taken to the operating room. An anesthetic provided to the patient. We scrubbed him and prepped and draped him sterile. I outlined posterior and anterior skin incision; a nice flap on the volar aspect of his toe. I was able to make an elliptical type incision and removed the proximal and distal phalanx. We modified the flaps to a modest degree for appropriate closure. I cut the tendons proximal as well to have no infectious process more proximal to his foot. We irrigated thoroughly reapproximated with 3-0 nylon suture. Sterile dressings applied. The skin approximated perfectly. Again, no complications. Sponge and needle count correct at the close. I attest to the content of the Intraoperative Record and any orders documented therein. Any exception s are noted below.
[2017-10-10] MEDS: ACETAMINOPHEN IV 1,000 MG in EMPTY BAG 0 ML IV SCH ×2 (13:21→21:49)
[2017-10-10] MEDS: SODIUM CHLORIDE 0.9% 1000ML 1,000 ML IV SCH ×2 (13:49→15:23)
--- NOTE | 2017-10-10 14:25 | Pharmacy Progress Note ---
Pharmacy Antibiotic Prog Note Date of Service Oct 10, 2017. Subjective The patient is currently receiving vancomycin 1 gm iv q 8 hrs The patient is currently on day # 4 of IV therapy. Objective Height (Feet): 5 Height (Inches): 11.00 Weight (Kilograms): 65.100 Levels: Item Value Date Time Vancomycin Level Trough 7.5 mcg/ml 10/10/17 1248 Lab Results (24hrs): Test 10/10/17 06:37 10/10/17 07:38 10/10/17 10:48 10/10/17 12:48 White Blood Count 3.18 K/uL (4.8-10.8) Red Blood Count 3.74 M/uL (4.7-6.1) Hemoglobin 11.2 g/dL (14.0-18.0) Hematocrit 32.8 % (42-52) Mean Corpuscular Volume 87.7 fL (80-100) Mean Corpuscular Hemoglobin 29.9 pg (25-34) Mean Corpuscular Hemoglobin Concent 34.1 g/dl (32-36) Platelet Count 217 K/uL (130-400) Mean Platelet Volume 9.4 fL (7.4-10.4) Neutrophils (%) (Auto) 49.1 % Lymphocytes (%) (Auto) 39.0 % Monocytes (%) (Auto) 8.8 % Eosinophils (%) (Auto) 2.5 % Basophils (%) (Auto) 0.3 % Neutrophils # (Auto) 1.56 K/uL (1.4-6.5) Lymphocytes # (Auto) 1.24 K/uL (1.2-3.4) Monocytes # (Auto) 0.28 K/uL (0.11-0.59) Eosinophils # (Auto) 0.08 K/uL (0-0.5) Basophils # (Auto) 0.01 K/uL (0-0.2) RDW Standard Deviation 42.1 fL (36.4-46.3) RDW Coefficient of Variation 13.0 % (11.5-14.5) Immature Granulocyte % (Auto) 0.3 % Immature Granulocyte # (Auto) 0.01 K/uL (0.00-0.02) Prothrombin Time 9.6 SECONDS (9.0-12.0) Prothromb Time International Ratio 0.9 (0.9-1.1) Activated Partial Thromboplast Time 32.6 SECONDS (21.0-31.0) Partial Thromboplastin Ratio 1.3 Sodium Level 139 mmol/L (136-145) Potassium Level 4.2 mmol/L (3.5-5.1) Chloride Level 107 mmol/L (98-107) Carbon Dioxide Level 28 mmol/L (21-32) Anion Gap 4.0 mmol/L (3-11) Blood Urea Nitrogen 8 mg/dl (7-18) Creatinine 0.54 mg/dl (0.60-1.40) Est Creatinine Clear Calc Drug Dose 170.8 ml/min Estimated GFR () > 150.0 Estimated GFR (Non- 133.2 BUN/Creatinine Ratio 14.0 (10-20) Random Glucose 121 mg/dl (70-99) Calcium Level 8.0 mg/dl (8.5-10.1) Magnesium Level 2.2 mg/dl (1.8-2.4) Bedside Glucose 116 mg/dl (70-99) 148 mg/dl (70-99) Vancomycin Level Trough 7.5 mcg/ml (SEE COMMENT) Assessment & Plan Patient on vancomycin and zosyn for possible osteomyelitis/toe infection. Patient now s/p amputation of left toe. BC x 2 are no growth Vancomycin: * Trough level came back subtherapeutic today, however drawn incorrectly - expect estimated level higher 15-20 mcg/ml ; Previous dose was given early and trough level drawn about ~12 hrs after last dose instead of 8 hrs so not reflective of true trough * Will continue with current regimen, but recheck a trough tomorrow prior to the 1400 dose to ensure therapeutic Zosyn: * no adjustments needed Pharmacy will continue to follow and will adjust dose/frequency as necessary. Thank you
[2017-10-10] MEDS ORDERED: LORAZEPAM INJ 1 MG in SYRINGE 0.5 ML IV STA (21:31)
[2017-10-10] MEDS ORDERED: HALOPERIDOL LACTATE 5 MG/ML 1 ML VIAL IM PRN (21:45)
[2017-10-10] MEDS: PRAVASTATIN SOD 40 MG TAB PO SCH (21:50)
[2017-10-10] MEDS ORDERED: VANCOMYCIN IV 1,000 MG in SODIUM CHLORIDE 0.9% 250ML 250 ML IV SCH (22:00)
[2017-10-11] MEDS: NSS + 20MEQ KCL 1000ML 1,000 ML IV SCH (03:18)
[2017-10-11] MEDS: ACETAMINOPHEN IV 1,000 MG in EMPTY BAG 0 ML IV SCH (03:36)
[2017-10-11] MEDS: PIPERACILL/TAZOBAC IV 3.375 GM in DEXTROSE 5% 100ML 100 ML IV SCH (05:43)
[2017-10-11 07:04] LABS: BASO % 0.3 %; BASO ABS # 0.01 K/uL (0-0.2); EOS % 2.4 %; EOS ABS # 0.09 K/uL (0-0.5); HEMOGLOBIN 11.2 g/dL (14.0-18.0); IG# 0.02 K/uL (0.00-0.02); LYMPH % 36.4 %; LYMPH ABS # 1.35 K/uL (1.2-3.4); MEAN CELL VOLUME 88.5 fL (80-100); MEAN CORPUSCULAR HGB CONC 33.9 g/dl (32-36); MEAN PLATELET VOLUME 9.6 fL (7.4-10.4); MONO % 12.7 %; MONO ABS # 0.47 K/uL (0.11-0.59); NEUT % 47.7 %; NEUT ABS # 1.77 K/uL (1.4-6.5); PLATELET COUNT 250 K/uL (130-400); RED CELL DISTRIBUTION WIDTH CV 12.9 % (11.5-14.5); RED CELL DISTRIBUTION WIDTH SD 41.7 fL (36.4-46.3); WHITE BLOOD COUNT 3.71 K/uL (4.8-10.8)
[2017-10-11 07:07] VITALS: BP 95/63; PULSE 69; TEMP 36.4; O2SAT 95
[2017-10-11 07:40] LABS: CREATININE 0.57 mg/dl (0.60-1.40)
[2017-10-11 08:00] VITALS: O2SAT 99
[2017-10-11] MEDS ORDERED: INSULIN GLARGINE SOLOSTAR 100 UNITS/ML 3 ML PEN SC SCH ×2 (08:00→21:00)
--- NOTE | 2017-10-11 08:26 | Anesthesiology Progress Note ---
Anesthesia Post Op Note Date & Time Oct 11, 2017 at 08:26 Vital Signs Pain Intensity: 3.0 Vital Signs Past 12 Hours Date Time Temp Pulse Resp B/P (MAP) Pulse Ox O2 Delivery O2 Flow Rate FiO2 10/11/17 07:07 36.4 69 19 95/63 (74) 95 Room Air 10/11/17 00:00 Room Air Notes Mental Status: alert / awake / arousable, participated in evaluation Pt Amnestic to Procedure: Yes Nausea / Vomiting: adequately controlled Pain: adequately controlled Airway Patency, RR, SpO2: stable & adequate BP & HR: stable & adequate Hydration State: stable & adequate Anesthetic Complications: no major complications apparent
[2017-10-11] MEDS: RISPERIDONE 3 MG TAB PO SCH (08:40)
[2017-10-11] MEDS: CLONAZEPAM 0.5 MG TAB PO SCH (08:40)
[2017-10-11] MEDS: LISINOPRIL 2.5 MG TAB PO SCH (08:41)
[2017-10-11] MEDS: DIVALPROEX SODIUM 500 MG DELAY RELEASE TAB PO SCH (08:41)
[2017-10-11] MEDS: BOOST GLUCOSE CONTROL PO SCH (08:42)
[2017-10-11] MEDS: ENOXAPARIN 40 MG/0.4 ML SYR SQ SCH (08:43)
[2017-10-11] MEDS: INSULIN ASPART 100 UNITS/ML 3 ML PEN SC SCH ×2 (08:47→12:41)
[2017-10-11] MEDS ORDERED: OXYC-57 PO (10:43)
[2017-10-11] MEDS ORDERED: SULF-302 PO (10:43)
[2017-10-11] MEDS ORDERED: INSDGI SQ (10:46)
--- NOTE | 2017-10-11 10:47 | Discharge Instructions ---
Discharge Instructions Date of Service Oct 11, 2017. Admission Reason for Admission: Diabetic Foot Ulcer Discharge Discharge Diagnosis / Problem: Diabetic foot ulcer, osteomyelitis, amputation Discharge Goals Goal(s): Decrease discomfort, Increase independence, Improve disease control, Diagnostic testing, Therapeutic intervention, Screening, Prevent Disease Progression Activity Recommendations Activity Limitations: as noted below Lifting Limitations: gradually increase as tolerated Shower/Bathe: tomorrow, keep incision dry . Instructions / Follow-Up Instructions / Follow-Up Mr. Ray was admitted for Foot ulcer. He was found to have osteomyelitis. He did have amputation of his Left big toe. Please continue Bactrim for 4 weeks. Recommend weekly BMP. May extend an additional 2 weeks depending on clinical picture/healing etc. Diabetes- Insulin lantus was adjusted to 13 units qAM Patient may have Boost, glucose control 3-4 times daily. please ensure that he does not have access to Salt/salt shakers. Thank you. Current Hospital Diet Patient's current hospital diet: Diabetes Type 1 Diet Discharge Diet Recommended Diet: Diabetes Type 2 Diet Procedures Procedures Performed: Left Great Toe Amputation Pending Studies Studies pending at discharge: no Laboratory Results Hemoglobin A1c Test 10/07/17 18:03 Range/Units Estimated Average Glucose 260 mg/dl Hemoglobin A1c 10.7 H 4.5-5.6 % Lipid Panel Test 10/08/17 06:28 Range/Units Triglycerides Level 91 0-150 mg/dl Cholesterol Level 95 0-200 mg/dl HDL Cholesterol 38 mg/dl Cholesterol/HDL Ratio 2.5 LDL Cholesterol, Calculated 39 mg/dl Medical Emergencies . Who to Call and When: Medical Emergencies: If at any time you feel your situation is an emergency, please call 911 immediately. . Non-Emergent Contact Non-Emergency issues call your: Primary Care Provider, Surgeon Call Non-Emergent contact if: temperature is above 100.5, your pain is not controlled, your pain is worsening, your pain is unusual for you, your pain is concerning you, wound has increased drainage, wound has increased redness, wound has increased pain . . "Provider Documentation" section prepared by Sarai Gruber. .
--- NOTE | 2017-10-11 10:48 | Pharmacy Progress Note ---
Glycemic Control Progress Note Date of Service Oct 11, 2017. Scope Glycemic Pharmacist consulted for glycemic control to write orders per [facility] ED inpatient glycemic control protocol. Objective Accuchecks BSG (last 24hrs): Test 10/10/17 10:48 10/10/17 16:40 10/10/17 20:36 10/11/17 08:01 Bedside Glucose 148 mg/dl (70-99) 236 mg/dl (70-99) 206 mg/dl (70-99) 252 mg/dl (70-99) HbA1c: Test 10/07/17 18:03 Hemoglobin A1c 10.7 % (4.5-5.6) H Recent Pertinent Medications The patient is currently receiving: * Basal insulin: Lantus 5 units in the morning and 13 units in the PM (NPO yesterday) * Correctional Insulin: Novolog Correction per scale ACHS Goal Range: Low 110 mg/dL - High 150 mg/dL Correction Factor: 30 mg/dL/unit * Prandial insulin: Per carb ratio of 1 unit per 12 grams CHO consumed Outpatient Anti-Diabetic Meds Lantus 10 units in the morning and 13 units in the evening; regular insulin sliding scale Assessment & Plan ASSESSMENT: * See progress note from 10/08/17 for more background info, in short: * Pt receiving SQ basal bolus insulin regimen for hyperglycemia secondary to baseline DM (outpatient regimen on hold), chronic osteomyelitis of toe, POD 1 for great toe amputation * Patient is currently receiving an average of ~45 units of insulin per day ( received 35 units yesterday NPO for part of the day) * 18 units of basal insulin * 17 units of prandial/correctional insulin * BSGs ranging 173-529-206-206 mg/dl over the past 24hrs * Changes needed to insulin regimen: * AM Fasting BSG = 252 mg/dl. This is above goal range for patient based on inpatient targets and co-morbidities. The patient received a half-dose yesterday morning since he was NPO so this is most likely the source of elevated blood sugars. Resumed home dose. * Post-prandial BSGs have trended downwards so continue regimen. * Total daily dose = ~40 units. PLAN FOR INPATIENT GLYCEMIC CONTROL: * Give Lantus 10 units SQ in the morning then 13 units SQ in the evening * Continuing correction factor of 30 mg/dl/unit * Continuing carb ratio of 1 unit per 12 grams CHO consumed * Continuing goal range of Low 110 mg/dL - High 150 mg/dL RECOMMENDATIONS FOR DISCHARGE: * Patient's HbA1C is not well controlled. Recommend working with physician within the [facility] to titrate to desired blood sugars. Goal HbA1C per age and co- morbidities 7.6-8.0% per the Elements of Diabetes Care Scoring Scale. Thank you.
--- NOTE | 2017-10-11 11:06 | Discharge Summary ---
Discharge Summary Date of Service Oct 11, 2017. Discharge Summary Admission Date: Oct 07, 2017 at 21:32 Discharge Date: Oct 10, 2017 Discharge Disposition: Acute care facility Principal Diagnosis: Diabetic Foot ulcer, osteomyelitis, s/p amputation Problems/Secondary Diagnoses: Diabetes mellitus Schizoaffective disorder Hyperlipidemia Immunizations: Have You Had Influenza Vaccine: Unknown History of Tetanus Vaccine?: Unknown History of Pneumococcal: Unknown History of Hepatitis B Vaccine: Unknown Procedures: HEAD COMBO CLINICAL HISTORY: Fever. Headache. COMPARISON STUDY: No previous studies for comparison. TECHNIQUE: Axial images of the head were obtained before and after intravenous administration of 119 cc Optiray 320 IV. FINDINGS: No acute intracranial hemorrhage, midline shift or mass effect is present. Ventricular system is normal. Basilar cisterns are patent. No extra axial collections are present. Boyd-white differentiation is maintained. There are no findings to suggest acute dural sinus thrombosis or acute territorial infarct. There is no intracranial mass or pathologic enhancement. There are no significant calvarial abnormalities. There is minimal mucosal thickening of the sinuses. IMPRESSION: 1. No acute intracranial findings. 2. No intracranial mass or pathologic enhancement. CHEST ONE VIEW PORTABLE CLINICAL HISTORY: Sepsis COMPARISON STUDY: No previous studies for comparison. FINDINGS: There is evidence for old distal right clavicular injury. Several old right rib fractures are noted. There is no pneumothorax or pleural effusion. No consolidation. Cardiomediastinal silhouette is unremarkable. IMPRESSION: No acute cardiopulmonary findings. L FOOT MIN 3 VIEWS ROUTINE CLINICAL HISTORY: Evaluate for fracture or osteomyelitis. COMPARISON: None FINDINGS: Tarsometatarsal joints are intact. There is no fracture. There is no radiographic evidence of osteomyelitis within the left foot. There is possible soft tissue swelling of the left first toe. IMPRESSION: No fracture or radiographic evidence of osteomyelitis within the left foot. LEFT FOREFOOT MRI HISTORY: First toe ulcer, r/o osteomyelitis TECHNIQUE: Multiplanar multisequence MRI of the left forefoot was performed without the use of intravenous contrast. COMPARISON STUDY: Left foot 10/07/2017. FINDINGS: Only sagittal sequences and a single coronal T1 sequences were obtained. The patient refused further imaging. There is also motion artifact throughout the examination. This results in suboptimal evaluation of the forefoot. There is soft tissue edema throughout the first toe. There is also edema-like marrow signal within the proximal and distal phalanx of the first toe. This most pronounced at the distal phalanx. T1 signal in the distal phalanx may be slightly hypointense compared to the remaining osseous structures. The T1 signal within the proximal phalanx of the first toe is preserved. No definite cortical erosions. However, this is difficult to assess due to the motion artifact. IMPRESSION: Suboptimal study due to the incomplete sequences and motion artifact. Above findings are consistent with osteitis involving the proximal and distal phalanx of the first toe. There is possible borderline hypointense T1 signal at the distal phalanx which could represent a developing osteomyelitis. Consultations: Orthopedic Surgery Medication Reconciliation New Medications: Sulfamethoxazole-Trimethoprim (Smz-Tmp Ds) 1 Tab Tab 1 TAB PO Q12 for 30 Days, #60 TAB Changed Medications: Insulin Glargine (Lantus) 100 Unit/Ml Inj 13 UNITS SQ QAM for 30 Days, VIAL (Changed from: 10 UNITS) IN ADDITION TO 3 UNITS HUMULIN R Continued Medications: Acetaminophen (Tylenol) 325 Mg Tab 650 MG PO BID PRN for Pain or Fever, TAB Clonazepam (Klonopin) 0.5 Mg Tab 0.5 MG PO BID, TAB Divalproex Sodium (Depakote Delay Rel) 500 Mg Tab 500 MG PO BID, TAB Emollient (Thera-Derm) 1 Lot Lot 1 APPLN TD DAILY PRN for UNDECIDED Erythromycin Opth (Erythromycin Opth) 12 Appln/3.5 Gm Oint 1 APPLN OPB TID Insulin Glargine (Lantus) 100 Unit/Ml Inj 13 UNITS SQ QPM, VIAL Insulin Human Regular (Humulin R) 100 Units/Ml Susp 3 UNITS SQ QAM Insulin Human Regular (Humulin R) 100 Units/Ml Susp SQ ACHS PER SLIDING SCALE : 0-180 = 0 201-250 =4 251-300 =8 301-350 =12 351-400 =16 >400 =20 Lisinopril (Zestril) 2.5 Mg Tab 2.5 MG PO QAM Magnesium Hydroxide (Milk of Magnesia) 30 Ml Susp 20 PO DAILY PRN for Constipation Pravastatin Sod (Pravastatin Sodium) 40 Mg Tab 40 MG PO HS Risperidone (Risperdal) 3 Mg Tab 3 MG PO BID, TAB Discharge Exam Review of Systems: Constitutional: No fever, No chills Eyes: No worsening of vision ENT: No hearing loss Respiratory: No cough, No sputum, No wheezing, No shortness of breath Cardiovascular: No chest pain Abdomen: No pain, No nausea, No vomiting Musculoskeletal: No joint pain Genitourinary - Male: No dysuria, No urinary frequency Physical Exam: General Appearance: no apparent distress Eyes: PERRL, EOMI ENT: hearing grossly normal Neck: no adenopathy Respiratory/Chest: lungs clear, normal breath sounds, no respiratory distress, no accessory muscle use Cardiovascular: regular rate, rhythm, no murmur Abdomen / GI: normal bowel sounds, non tender, soft Extremities: no calf tenderness, no pedal edema, + pertinent finding (left foot in a dressing s/p amputation) Neurologic/Psychiatric: alert Hospital Course The patient is a 37-year-old male inmate who presented to the emergency department with report of a blister on his left great toe which had been present for about a year, originally treated with Cipro, and then he put salt on it a few days ago when it recurred, and now presents with fevers and chills. He also noted that he put salt in his eyes, to help him concentrate. He was found to have a Left first toe ulcer on the planter surface. MRI revealed a developing osteomyelitis. Orthopedics was consulted and he underwent amputation. He was originally on IV Vanc and Zosyn however, was switched to po Bactrim for 4-6 weeks outpatient. He does have uncontrolled diabetes and was on an insulin drip initially. This was transitioned to Lantus 13 U BID. He had a few episodes of combativeness and needed to be medicated with Haldol and was also placed in 4 point restraints. Patient was otherwise stable for discharge back to the skilled nursing where he may undergo physical therapy. He should not be given access to salt. Resident Physician Supervision Note: I interviewed and examined the patient. Discussed with Dr. Jackson and agree with findings and plan as documented in the note. Any exceptions or clarifications are listed here: None Documented By: Emigdio Chery feeling ok no fevers foot doesn't hurt but with neuropathy it never has vitals noted nad breathing unlabored no pallor or icterus no erythema foot dressed osteomyelitis/DM foot infection/uncontrolled DM -post op -bactrim - follow weekly BMP, periodic ESR; ortho f/u, ID if needed -insulins -stable for return to [facility] Total Time Spent: Less than 30 minutes This includes examination of the patient, discharge planning, medication reconciliation, and communication with other providers. Discharge Instructions Please refer to the electronic Patient Visit Report (Discharge Instructions) for additional information.
[2017-10-11 11:10] VITALS: BP 95/63; PULSE 69; TEMP 36.4; O2SAT 99
[2017-10-11] MEDS ORDERED: VANCOMYCIN TROUGH ONE (13:30)
[2017-10-11] MEDS ORDERED: SULFAMETHOXAZOLE/TRIMETHOPRIM DS 800/160MG TAB PO SCH (21:00)
== END 2017-10-11 12:56 | disposition home or self-care (01) | DRG 617 ==
LOC: C.EDB 17:24 → C.MS4W 21:32 → ENRESERV 22:00 → C.MS4W 23:16
PROVIDERS: ADMIT Hospitalist; ATTEND Family Medicine
PROC: 0Y6Q0Z0 Detachment at Left 1st Toe, Complete, Open Approach (ICD-10-PCS; principal; 2017-10-10 10:00)
DX: E11.69 Type 2 diabetes mellitus with other specified complication (principal); M86.9 Osteomyelitis, unspecified; E11.621 Type 2 diabetes mellitus with foot ulcer; L97.529 Non-pressure chronic ulcer of other part of left foot with unspecified severity; E11.65 Type 2 diabetes mellitus with hyperglycemia; F25.9 Schizoaffective disorder, unspecified; R51 Headache; E78.5 Hyperlipidemia, unspecified; Z79.4 Long term (current) use of insulin; Z79.899 Other long term (current) drug therapy; Z89.411 Acquired absence of right great toe